=== PATIENT | female | born 1975 | race Caucasian/White ===

== ENCOUNTER 2022-04-29 09:48 | Emergency (ER) | payer OTHER, SELFPAY ==
[2022-04-29 09:59] VITALS: BP 120/90; PULSE 83; RESP 16; TEMP 36.2; O2SAT 100
--- NOTE | 2022-04-29 10:35 | ED.URI ---
HPI - URI/Sore Throat General Chief Complaint: Upper Respiratory Infection Stated Complaint: Sinus Congestion Time Seen by Provider: 04/29/22 10:30 Source: patient, RN notes reviewed and old records reviewed Mode of arrival: ambulatory Limitations: no limitations History of Present Illness HPI Narrative: 47-year-old female who presents to [facility] with complaints of 5 day history sinus congestion some yellow nasal drainage and postnasal drainage, headache, itchy ears and sinus pressure. Patient reports she has had a history of having sinus infections in past patient reports she has been taking Zyrtec D for her symptoms denies any known fevers does state some chills. Patient has not been COVID vaccinated or had flu shot, did home COVID test yesterday which was negative. MD elicited complaint: rhinorrhea, nasal congestion, sinus pain and other (Headache) Pertinent past history: sinusitis Onset (ago): day(s) Consistency: constant Severity: moderate Pain scale (0-10): 4 Description of mucous: yellow Able to tolerate fluids by mouth: Yes Treatments prior to arrival: other (Zyrtec D) Related Data Home Medications Medication Instructions Recorded Confirmed alogliptin 6.25 mg tablet (Nesina) 6.25 mg PO DAILY 04/29/22 04/29/22 atorvastatin 10 mg tablet 10 mg PO DAILY 04/29/22 04/29/22 levothyroxine 112 mcg tablet 112 mcg PO DAILY 04/29/22 04/29/22 valsartan 160 1 tablet PO DAILY 04/29/22 04/29/22 mg-hydrochlorothiazide 12.5 mg tablet Allergies Allergy/AdvReac Type Severity Reaction Status Date / Time amoxicillin Allergy Rash Verified 04/29/22 10:17 Review of Systems Review of Systems: CONSTITUTIONAL: Reports malaise, chills, sweats, no known fever. EYES: Denies visual changes, redness, or discharge. ENT: Reports rhinorrhea, congestion, sinus pain, no otalgia and sore throat. CARDIOVASCULAR: Denies chest pain, palpitations, or edema. RESPIRATORY: Reports cough.? Denies dyspnea. GASTROINTESTINAL: Denies abdominal pain, nausea, vomiting, diarrhea SKIN: Denies rash or itching. MUSCULOSKELETAL: Denies myalgia. NEUROLOGIC: Reports headache. 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 There is no relevant family history pertinent to the presenting complaint Exam Narrative: GENERAL: Well-appearing, well-nourished, and in no acute distress. HEAD: Normocephalic EYES: PERRLA, conjunctivae clear ENT: Nares clear, turbinates edematous and erythematous, yellow discharge.Sinus pressure,frontal headache. Mucous membranes moist. TM pearly smith with dull light reflex bilaterally; no tragal tenderness. Oropharynx erythematous without lesions. Tonsils not enlarged and without exudate, no drooling, no hoarseness, no trismus, uvula midline.post nasal drainage NECK: Supple. No lymphadenopathy CHEST: Clear to auscultation, breath sounds equal. No wheezing, rhonchi, rales, or stridor. No respiratory distress, speaks in full sentences.SAO2 100% on room air HEART: Regular rate and rhythm. No murmur heard. SKIN: Warm, dry, no rash. NEURO: Alert and oriented x3. PSYCH: Normal mood and affect Course Course Emergency Course: Patient is aware of diagnosis, understands and agrees to treatment plan.? Anticipatory guidance given.? P
== END 2022-04-29 10:50 | disposition home or self-care (01) ==
PROVIDERS: Emergency Provider Registered Nurse; PCP Internal Medicine
DX: J32.9 Chronic sinusitis, unspecified (principal); B96.89 Other specified bacterial agents as the cause of diseases classified elsewhere; E11.9 Type 2 diabetes mellitus without complications; I10 Essential (primary) hypertension; E03.9 Hypothyroidism, unspecified
CPT/HCPCS: 99213; G0463

== ENCOUNTER 2022-05-08 09:02 | Emergency (ER) | payer OTHER, SELFPAY ==
[2022-05-08 09:08] VITALS: BP 122/86; PULSE 64; RESP 20; TEMP 36.7; O2SAT 100
--- NOTE | 2022-05-08 09:10 | ED.NAVMDI ---
HPI - Nausea/Vomiting/Diarrhea General Chief complaint: Nausea/Vomiting/Diarrhea Stated complaint: Abdo/back pain/diarrhea/nausea Time Seen by Provider: 05/08/22 09:10 Source: patient and RN notes reviewed History of Present Illness HPI Narrative: Patient is a 47-year-old female who presents to urgent care with complaints of abdominal pain, low back pain, diarrhea, nausea and headache. Patient states it started yesterday. States that she was recently azithromycin, finished the prescription yesterday, for sinusitis. Patient states she has taken in past any issues with diarrhea. Patient states she feels very fatigued today. Denies any vomiting or fever. Patient has not taken anything [id number] for her symptoms. No other acute complaints. No acute distress noted. Patient aware of the plan of care. Some parts of this dictation were generated by voice recognition software and may contain typographical and/or grammatical inaccuracies. Related Data Home Medications Medication Instructions Recorded Confirmed alogliptin 6.25 mg tablet (Nesina) 6.25 mg PO DAILY 04/29/22 04/29/22 atorvastatin 10 mg tablet 10 mg PO DAILY 04/29/22 04/29/22 levothyroxine 112 mcg tablet 112 mcg PO DAILY 04/29/22 04/29/22 valsartan 160 1 tablet PO DAILY 04/29/22 04/29/22 mg-hydrochlorothiazide 12.5 mg tablet Allergies Allergy/AdvReac Type Severity Reaction Status Date / Time amoxicillin Allergy Rash Verified 04/29/22 10:17 Review of Systems Review of Systems: CONSTITUTIONAL: Denies fever, chills, or sweats. Reports of fatigue EYES: Denies visual changes, redness, or discharge. ENT: Denies rhinorrhea, congestion, sore throat, or otalgia. CARDIOVASCULAR: Denies chest pain, palpitations, or edema. RESPIRATORY: Denies cough or dyspnea. GASTROINTESTINAL: Reports abdominal cramping nausea diarrhea GENITOURINARY: Denies dysuria or hematuria. SKIN: Denies rash or itching. MUSCULOSKELETAL: Denies back pain, joint pain, or myalgia. NEUROLOGIC: Reports of headache All other systems reviewed are negative, except as documented in HPI. 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 There is no relevant family history pertinent to the patient complaint. Exam Narrative: GENERAL: This is a well-nourished, well-developed patient, in no apparent distress. HEAD: normocephalic, atraumatic. EYES: PERRL. Sclera clear/white. Vision is grossly intact. EARS: External ears normal, auditory canals clear and without drainage, TMs normal without perforation. Hearing grossly intact. NOSE: External nose normal with no obvious nasal discharge, nares without redness, no rhinorrhea. THROAT: Mucous membranes moist, posterior pharynx clear. NECK: Neck supple, non-tender without lymphadenopathy, masses or thyromegaly. CARDIOVASCULAR: Regular rate and rhythm RESPIRATORY: Clear to auscultation. Breath sounds equal bilaterally. No wheezes, rales, or rhonchi. GASTROINTESTINAL: Abdomen soft, mild diffuse tenderness exacerbated to the epigastric region, nondistended. Bowel sounds are active. No guarding. SKIN: warm, intact with no suspicious lesions or rash, good texture and turgor. NEURO: awake, alert, and oriented to person, place and time. There were no obvious focal neurologic abnormalities. EXTREMITIES: No clubbing, cyanosis, or edema.
== END 2022-05-08 09:54 | disposition home or self-care (01) ==
PROVIDERS: Emergency Provider Nurse Practitioner Family; PCP Internal Medicine
DX: B34.9 Viral infection, unspecified (principal); I10 Essential (primary) hypertension; E03.9 Hypothyroidism, unspecified; E11.9 Type 2 diabetes mellitus without complications
CPT/HCPCS: 81003; 99213; G0463

== ENCOUNTER 2022-09-22 11:33 | Emergency (ER) | payer SELFPAY ==
[2022-09-22 11:41] VITALS: BP 123/83; PULSE 66; RESP 16; TEMP 36.3; O2SAT 100
[2022-09-22 11:58] VITALS: BP 123/83; PULSE 66; RESP 16; TEMP 36.3; O2SAT 100
--- NOTE | 2022-09-22 12:10 | ED.SKABFB ---
HPI - Skin/Abscess/Foreign Bdy General Chief complaint: Skin/Abscess/Foreign Body Stated complaint: Body Rash Source: patient, family and RN notes reviewed History of Present Illness HPI narrative: 47 yo F presents to urgent care with daughter at side. Pt states for the last 3 weeks, she has been battling an itchy rash. Pt states it started on her abdomen and has now spread everywhere on her body, including scalp, ears, back, legs, and arms. Pt states she has tried everything to help including cortizone cream, benadryl, changing detergent, etc. Pt denies any new foods, drinks, or medications. Pt denies any SOB, chest pain, fevers, chills, or vomiting. Related Data Home Medications Medication Instructions Recorded Confirmed alogliptin 6.25 mg tablet (Nesina) 25 mg PO DAILY 04/29/22 09/22/22 atorvastatin 10 mg tablet 10 mg PO DAILY 04/29/22 09/22/22 levothyroxine 112 mcg tablet 125 mcg PO DAILY 04/29/22 09/22/22 valsartan 160 1 tablet PO DAILY 04/29/22 09/22/22 mg-hydrochlorothiazide 12.5 mg tablet cetirizine 10 mg tablet (Zyrtec) 10 mg PO DAILY 09/22/22 09/22/22 Allergies Allergy/AdvReac Type Severity Reaction Status Date / Time amoxicillin Allergy Rash Verified 09/22/22 11:56 Review of Systems Review of Systems: Pertinent positives and pertinent negatives per HPI. 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 There is no relevant family history pertinent to the patient complaint. Exam Narrative: GENERAL: This is a well-nourished, well-developed patient, in no apparent distress. HEAD: normocephalic, atraumatic. EYES: Sclera clear/white. Vision is grossly intact. EARS: External ears normal, auditory canals clear and without drainage. Hearing grossly intact. NOSE: External nose normal with no obvious nasal discharge, nares without redness, no rhinorrhea. THROAT: Mucous membranes moist, posterior pharynx clear. NECK: Neck supple, non-tender without lymphadenopathy, masses or thyromegaly. CARDIOVASCULAR: Regular rate RESPIRATORY: No respiratory distress SKIN: erythremic, hive-like rash to lower abdomen. 2 papules noted to right FA. No other rash noted to back or ears. NEURO: awake, alert, and oriented to person, place and time. There were no obvious focal neurologic abnormalities. EXTREMITIES: No clubbing, cyanosis, or edema. No joint tenderness, effusion, or edema noted. BACK: Nontender without deformity or crepitus. No flank tenderness. Course Course Level of Care: Express Care Visit Vital Signs Vital signs: Vital Signs Temperature 97.3 F L 09/22/22 11:41 Pulse Rate 66 09/22/22 11:41 Respiratory Rate 16 09/22/22 11:41 Blood Pressure 123/83 09/22/22 11:41 Pulse Oximetry 100 09/22/22 11:41 Oxygen Delivery Room Air 09/22/22 11:41 Temperature 97.3 F L 09/22/22 11:58 Pulse Rate 66 09/22/22 11:58 Respiratory Rate 16 09/22/22 11:58 Blood Pressure 123/83 09/22/22 11:58 Pulse Oximetry 100 09/22/22 11:58 Oxygen Delivery Room Air 09/22/22 11:58 Reviewed MDM - Skin/Abscess/Foreign Bdy MDM Narrative Medical decision making narrative: Take the steroids as directed, starting tomorrow. May need to go to an product safety associate and keep food diary if rash persists. Differential Diagnosis Differential diagnosis: Likely viral exanthem, ur
[2022-09-22] MEDS: methylPREDNISolone SOD SUCC 125 MG VIAL IM (12:15)
== END 2022-09-22 12:35 | disposition home or self-care (01) ==
PROVIDERS: Emergency Provider Nurse Practitioner Family; PCP Internal Medicine
DX: L30.9 Dermatitis, unspecified (principal); E11.9 Type 2 diabetes mellitus without complications; E78.00 Pure hypercholesterolemia, unspecified; I10 Essential (primary) hypertension; E03.9 Hypothyroidism, unspecified
CPT/HCPCS: 96372; 99213; G0463; J2930

== ENCOUNTER 2024-04-08 11:52 | Emergency (ER) | payer BC, SELFPAY ==
[2024-04-08 12:02] VITALS: BP 142/87; PULSE 85; RESP 18; TEMP 36.3; O2SAT 100
--- NOTE | 2024-04-08 12:14 | ED.GENADULT ---
HPI - General Adult General Chief complaint: Upper Respiratory Infection Stated complaint: Sore Throat/Headache Source: patient Mode of arrival: ambulatory Limitations: no limitations History of Present Illness HPI narrative: Patient presents for evaluation of sick symptoms for last 3 days. She had influenza a at the start of March. Symptoms at that time included fever and generalized body aches. She now has sinus congestion, thick yellow nasal drainage, sore throat and cough. She took tylenol and ibuprofen when she had flu. She states she has a history of recurrent sinusitis and responds favorably to azithromycin. Related Data Home Medications ?Medication ?Instructions ?Recorded ?Confirmed ?Last Taken ?Type alogliptin 6.25 mg tablet (Nesina) 25 mg PO DAILY 04/29/22 09/22/22 Unknown History atorvastatin 10 mg tablet 10 mg PO DAILY 04/29/22 09/22/22 Unknown History levothyroxine 112 mcg tablet 125 mcg PO DAILY 04/29/22 09/22/22 Unknown History valsartan 160 1 tablet PO DAILY 04/29/22 09/22/22 Unknown History mg-hydrochlorothiazide 12.5 mg tablet cetirizine 10 mg tablet (Zyrtec) 10 mg PO DAILY 09/22/22 09/22/22 Unknown History glimepiride 4 mg tablet mg 04/08/24 Unknown History levothyroxine 125 mcg tablet mcg 04/08/24 Unknown History Allergies Allergy/AdvReac Type Severity Reaction Status Date / Time amoxicillin Allergy Rash Verified 09/22/22 11:56 Review of Systems Review of Systems: CONSTITUTIONAL: Denies fever, chills, or sweats. EYES: Denies visual changes, redness, or discharge. ENT: Reports sinus congestion, thick yellow nasal drainage and sore throat. Denies otalgia CARDIOVASCULAR: Denies chest pain, palpitations, or edema. RESPIRATORY: Denies cough or dyspnea. GASTROINTESTINAL: Denies abdominal pain, nausea, vomiting, or diarrhea. GENITOURINARY: Denies dysuria or hematuria. SKIN: Denies rash or itching. MUSCULOSKELETAL: Denies back pain, joint pain, or myalgia. NEUROLOGIC: Denies headache, numbness, dizziness, or weakness. PSYCHIATRIC: Denies anxiety or depression. 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 HEAD: Normocephalic, atraumatic. EYES: PERRLA and EOMI. ENT: Nares clear, no rhinorrhea or epistaxis. Mucous membranes moist. Oropharynx without tonsillar hypertrophy exudate or other lesions. Bilateral TMs pearly smith nonbulging NECK: Supple. No adenopathy or masses. No carotid bruits or JVD CHEST: Clear to auscultation. No respiratory distress. No wheezes rales or rhonchi HEART: Regular rate and rhythm. No murmur heard. Normal peripheral pulses. ABDOMEN: Soft, nontender, nondistended, normal active bowel sounds. EXTREMITIES: Normal range of motion. No edema. SKIN: Warm, dry, no rash. NEURO: No focal deficits. Alert and oriented x3. PSYCH: Normal mood and affect. Course Course Emergency Course: This is a 49-year-old female who presented for evaluation of sick symptoms. She has a history of recurrent sinusitis that is response to azithromycin. She meets criteria for a ABRS today based upon presence of mucopurulent discharge. Will dc with azithromycin. Follow up with PCP. Go to the ER for worsening symptoms. Pt in agreement with plan of care. Level of Care: Express Care Visit Vital Signs Vital signs: Vital Signs Temperature 36.3 C L 04/08/24 12:02 Pulse Rate 85 04/08/24 12:02 Respiratory Rate 18 04/08/24 12:02 Blood Pressure 142/87 H 04/08/24 12:02 Pulse Oximetry 100 04/08/24 12:02 Oxygen Delivery Room Air 04/08/24 12:02 Temperature 36.3 C L 04/08/24 12:02 Pulse Rate 85 04/08/24 12:02 Respiratory Rate 18 04/08/24 12:02 Blood Pressure 142/87 H 04/08/24 12:02 Pulse Oximetry 100 04/08/24 12:02 Oxygen Delivery Room Air 04/08/24 12:02 Medical Decision Making Vital Signs Vital Signs: Vital Signs Temperature 36.3 C L 04/08/24 12:02 Pulse Rate 85 04/08/24 12:02 Respiratory Rate 18 04/08/24 12:02 Blood Pressure 142/87 H 04/08/24 12:02 Pulse Oximetry 100 04/08/24 12:02 Oxygen Delivery Room Air 04/08/24 12:02 Temperature 36.3 C L 04/08/24 12:02 Pulse Rate 85 04/08/24 12:02 Respiratory Rate 18 04/08/24 12:02 Blood Pressure 142/87 H 04/08/24 12:02 Pulse Oximetry 100 04/08/24 12:02 Oxygen Delivery Room Air 04/08/24 12:02 Discharge Plan Discharge Clinical Impression: Sinusitis Patient Disposition: Home, Self-Care Condition: Stable Instructions: Antibiotic Form, Sinusitis (ED) Additional Instructions: TRY SLEEPING WITH A HUMIDIFIER Patient Language: Swiss Prescriptions: New azithromycin 250 mg tablet See Rx Instructions .ROUTE .COMPLEX Qty: 6 0RF Rx Instructions: For 250 mg dose pack: take 500 mg today (day 1), then 250 mg for 4 days (days 2-5) No Action levothyroxine 125 mcg tablet glimepiride 4 mg tablet valsartan-hydrochlorothiazide 160-12.5 mg tablet 1 tablet PO DAILY levothyroxine 112 mcg tablet 125 mcg PO DAILY alogliptin [Nesina] 6.25 mg Tablet 25 mg PO DAILY atorvastatin 10 mg Tablet 10 mg PO DAILY cetirizine [Zyrtec] 10 mg Tablet 10 mg PO DAILY Follow-up/Referrals: Ritika Lanza DO [Physician] - Stand Alone Forms: Work/School Release IP Time of Disposition: 12:09
--- OUTSIDE RECORDS SUMMARY | 2024-04-08 13:51 | XMS_ITS | Encounter Summary ---
Author Organization [facility] Address [address] [facility] [place] [address] Phone Care Team Providers Care Shellfish Dredge Operator Name Role Phone Emily Stinson MD Primary Care Provider [phone] Encounter Details Date Type Department Care Team (Late st Contact Info) Description 04/29/2019 Telephone [facility] Oncology Services [address] [place] [address] Luigi Riggs MD [address] [place] [address] Social History Tobacco Use Types Packs/Day Years Used Date Smoking Tobacco: Never Smokeless Tobacco: Never Alcohol Use Standard Drinks/Week Comments Yes 0 (1 standard drink = 0.6 oz pur e alcohol) rarely Comments No Sex and Gender Information Value Date Recorded Sex Assigned at Not on file Legal Sex Female 2:30 PM CDT Gender Identity Not on file Sexual Orientation Not on file COVID-19 Exposure Response Date Recorded In the last month, have you been in contact with someone who was confirmed or suspected to have Coronavirus / COVID-19? No / Unsure 04/29/2019 12:55 PM CDT documented as of this encounter Miscellaneous Notes * Telephone Encounter - Iveth Thomas - 04/29/2019 10:27 AM CDT I left the patient a voicemail stating that were are cancelling her follow up for April 30 to reduce the risk of patients delaney the Covid 19 virus. The patient is to complete her lab work, call Dr. Riggs within 48 hours for results, and to schedule her April 30 follow up. documented in this encounter Plan of Treatment Not on file documented as of this encounter Visit Diagnoses Not on filedocumented in this encounter Care Teams Shellfish Dredge Operator Relationship Specialty Start Date End Date Emily Stinson MD [address] [place] [address] PCP - General Internal Medicine 09/14/16 documented as of this encounter
--- OUTSIDE RECORDS SUMMARY | 2024-04-08 13:51 | XMS_ITS | Encounter Summary ---
Author Organization [facility] Address [address] [place] [address] Care Team Providers Care Deboner Name Role Phone Emily Stinson MD Primary Care Provider [phone] Reason for Visit * Reason Onset Date Comments Scheduling Appointments 08/24/2020 Confirmi ng mammogram appt- no answer Encounter Details Date Type Department Care Team (Late st Contact Info) Description 08/24/2020 Telephone [facility] [address] [place] [id number] [address] Mcdaniel RT Scheduling Appointments (Confirming mammogram appt- no answer ) Social History Tobacco Use Types Packs/Day Years Used Date Smoking Tobacco: Never Comments No Sex and Gender Information Value Date Recorded Sex Assigned at Not on file Legal Sex Female 1:11 AM IN FILE OPERATOR Gender Identity Not on file Sexual Orientation Not on file documented as of this encounter Plan of Treatment Not on file documented as of this encounter Visit Diagnoses Not on filedocumented in this encounter Additional Health Concerns Infection Onset Date Last Indicated Resolved Time COVID: Suspected 03/23/2024 03/23/2024 03/23/2024 11:17 AM IN FILE OPERATOR Influenza, adult 03/23/2024 03/23/2024 03/30/2024 3:05 AM IN FILE OPERATOR documented as of this encounter Care Teams Deboner Relationship Specialty Start Date End Date Emily Stinson MD [address] [place] [address] PCP - General 06/04/17 documented as of this encounter
--- OUTSIDE RECORDS SUMMARY | 2024-04-08 13:51 | XMS_ITS | Referral Summary ---
Author Organization [facility] Address [address] [place] [address] Care Team Providers Care Market Research Senior Project Manager Name Role Phone Emily Stinson MD Primary Care Provider [phone] Encounters Date Type Department Care Team Description 03/23/2024 11:04 AM SENIOR ARCHITECT - 03/23/2024 12:25 PM SENIOR ARCHITECT Emergency [facility] Emergency Department [address] [place] [address] Influenza A (Primary Dx) Discharge Disposition: Discharge to home or self care from Last 3 Months Allergies Active Allergy Reactions Criticality Noted Date Comments Amoxicillin Medications levothyroxine (SYNTHROID) 125 mcg tablet Take 125 mcg by mouth daily before breakfast Active valsartan-hydro CHLOROthiazide (DIOVAN-HCT) 160-12.5 mg per tablet Take 1 tablet by mouth daily Active cetirizine (Wal-Zyr, cetirizine,) 10 mg capsule Take 10 mg by mouth daily Active methylPREDNISol one (MEDROL DOSEPACK) 4 mg Dosepack follow package directions 21 tablet 4 Active Active Problems Problem Noted Date Diagnosed Date Pseudotumor cerebri 12/27/2020 Benign intracranial hypertension 12/08/2014 Cephalalgia 12/08/2014 Immunizations Immunization Administration Dates Next Due Influenza, Quadrivalent, Spl it, Preservative Free, Intramuscular 01/04/2021 Social History Tobacco Use Types Packs/Day Years Used Date Smoking Tobacco: Never Smokeless Tobacco: Never Tobacco Cessation:Counseling Given: Not Answered Alcohol Use Standard Drinks/Week Comments Not Currently 0 (1 standard drink = 0.6 oz pur e alcohol) AUDIT-C Answer Date Recorded Q1: How often do you have a drink containing alc ohol? Never 05/05/2021 Average Number of Drinks Not on file 022 Frequency of Binge Drinking Not on file 04/13 Personal Safety Answer Date Recorded Have you ever been in or are you currently in a harmful physical or emotional relationship or is someone making you feel afraid or unsafe? Denies 03/23/2024 Comments No Sex and Gender Information Value Date Recorded Sex Assigned at Not on file Legal Sex Female 1:11 AM SENIOR ARCHITECT Gender Identity Not on file Sexual Orientation Not on file Last Filed Vital Signs Vital Sign Reading Time Taken Comments Blood Pressure 159/95 03/23/2024 9:55 AM SENIOR ARCHITECT Pulse 74 03/23/2024 9:55 AM SENIOR ARCHITECT Temperature 35.7 C (96.2 F) 03/23/2024 9:54 AM SENIOR ARCHITECT Respiratory Rate 17 03/23/2024 9:55 AM SENIOR ARCHITECT Oxygen Saturation 100% 03/23/2024 9:55 AM SENIOR ARCHITECT Inhaled Oxygen Concentration - - Weight 110.7 kg (244 lb) 03/23/2024 9:55 AM SENIOR ARCHITECT Height 170.2 cm (5' 7 ) 03/23/2024 9:55 AM SENIOR ARCHITECT Body Mass Index 38.22 03/23/2024 9:55 AM SENIOR ARCHITECT Plan of Treatment Not on file Medical Devices Implanted Type Area Forest Economist Device Identifier Shelf Expiration Date Model / Serial / Lot Medtronic Inc [id number] Tom .25cm .13cm 120cm Antibiotic Impregnated Peritoneal Catheter - [id number] Implanted:Qty: 1 on 01/03/2021 by Adry Ramsay MD at [facility] Right: Abdomen Medtronic Inc [id number] 01/25/2022 [id number] / / [id number] Medtronic Usa Inc X 41159 Strata Ii Csf Programmable Flow Control Ball Spring Mechanism - [id number] Implanted:Qty: 1 on 01/03/2021 by Arnulfo Shaffer MD at [facility] Right: Brain Medtronic Inc [id number] 09/13/2023 [id number] / / [id number] Explanted Type Area Forest Economist Device Identifier Shelf Expiration Date Model / Serial / Lot Peritoneal Exhauster Engineer Catheter Explanted:Qty: 1 on 01/03/2021 by Adry Ramsay MD at [facility] Right: Abdomen Other Description:Brand of Almitaete r removed unknown. Procedures Procedure Name Priority Date/Time Associated Diagnosis Comments INFLUENZA A/B, RSV, AND COVID-19 PCR STAT 03/23/2024 10:27 AM SENIOR ARCHITECT SCREENING MAMMOGRAM BILATERAL W TIMMY Schedule Routine, Read Routine (OP Routine) 08/25/2020 4:07 PM CDT Encounter for screening mammogram for malignant neoplasm of breast from Last 3 Months or Most Recently Relevant to Health Maintenance Results * (ABNORMAL) Influenza A/B, RSV, and COVID-19 PCR Nasopharyngeal (03/23/2024 10:27 AM SENIOR ARCHITECT) COVID-19 RNA Negative Negative Influenza A RNA Positive(A) Negative CE RNER [facility] (ANTHONY) Influenza B RNA Negative Negative CERN ER [facility] (ANTHONY) RSV RNA Negative Negative ROBERTO BARCLAY (ANTHONY) Comment: Interpretive data: Testing performed by [facility]. This test is performed using the Frodio Xpert Xpress CoV-2/Flu/RSV plus assay. This is a multiplex, real- time reverse transcriptase PCR assay intended for the qualitative detection of nucleic acid from SARS-CoV-2, influenza A, influenza B, and respiratory syncytial virus. This assay has been cleared by the [place] Food and Drug administration. The performance characteristics have been verified by the [facility]. Results must be considered in the clinical context, and a negative result does not rule out infection. Interpretive Data last revised 2023 Nasopharyngeal 03/23/2024 10 :27 AM SENIOR ARCHITECT 03/23/2024 10:33 AM SENIOR ARCHITECT Narrative ROBERTO BARCLAY (ANTHONY) - 03/23/2024 11:16 AM SENIOR ARCHITECT Is the Patient experiencing symptoms consistent with COVID?->Yes us Ginny Hale MD LAB MICROBIOLOGY - GENERA L ORDERABLES Final Result ROBERTO BARCLAY (ANTHONY) 1 [facility] [place] [address] * Screening Mammogram Bilateral W Timmy (08/25/2020 4:07 PM CDT) Anatomical Region Laterality Modality Breast Bilateral Mammography 08/25/2020 4:43 PM CDT Impressions 08/25/2020 4:43 PM CDT There is no mammographic evidence of malignancy. A 1 year screening mammogram is recommended. BI-RADS: 1 - Negative. The patient will be entered into a reminder system with a target due date of 1 year for her next mammogram. Electronically signed by: Nikky Bustamante MD Narrative 08/25/2020 4:43 PM CDT EXAMINATION: SCREENING MAMMOGRAM BILATERAL W TIMMY ORDERING HEALTHCARE PROVIDER: CARLY RAMIREZ HISTORY: Routine screening mammography. COMPARISON: 08/29/2019 and 06/20/2017 TECHNIQUE: CC and MLO views of the bilateral breasts were obtained with digital technique using breast tomosynthesis with C view. Computer aided detection was utilized. FINDINGS: DENSITY: There are scattered fibroglandular elements in the bilateral breasts. BREASTS: There are no suspicious masses, suspicious calcifications, or other suspicious findings in either breast. There has been no suspicious interval change. Carly Ramirez PLASTIC PRODUCTION MACHINE SETTER IMG MAMMO PROCEDURES Final R esult from Last 3 Months or Most Recently Relevant to Health Maintenance Insurance [facility] PPO IDPA AETNA CARE OTHER [employer] OOS [employer] OOS Advance Directives For more information, please contact: [phone] * Full Code (Latest Code Status on File) Date Activated Date Inactivated Comments 01/02/2021 8:01 AM 01/04/2021 8:45 PM Care Teams Market Research Senior Project Manager Relationship Specialty Start Date End Date Emily Stinson MD [address] [place] [address] PCP - General 06/04/17
--- OUTSIDE RECORDS SUMMARY | 2024-04-08 13:51 | XMS_ITS | Encounter Summary ---
Author Organization [facility] Address [address] [place] [address] Phone Care Team Providers Care Field Organizer Name Role Phone Emily Stinson MD Primary Care Provider [phone] Encounter Details Date Type Department Care Team (Late st Contact Info) Description 10/25/[address] [facility] Ophthalmology [address] [place] [address] 1[address] [place] [id number] Mynor Damian MD [address] [facility] [address] [place], [place] [id number] Social History Tobacco Use Types Packs/Day Years Used Date Smoking Tobacco: Never Comments No Sex and Gender Information Value Date Recorded Sex Assigned at Not on file Legal Sex Female 1:11 AM CURVE CLEANER Gender Identity Not on file Sexual Orientation Not on file documented as of this encounter Plan of Treatment Not on file documented as of this encounter Visit Diagnoses Not on filedocumented in this encounter Additional Health Concerns Infection Onset Date Last Indicated Resolved Time COVID: Suspected 03/23/2024 03/23/2024 03/23/2024 11:17 AM CURVE CLEANER Influenza, adult 03/23/2024 03/23/2024 03/30/2024 3:05 AM CURVE CLEANER documented as of this encounter Eye Exam Visual Acuity (near card) Right eye Left eye Near sc 20/30-2 ph 20/20-2 20/30 ph 20/2 0 Tonometry (Tonopen, 3:32 PM) Right eye Left eye Pressure 18 20 Pupils Dark Light Shape React APD Right eye 5 3 Round Brisk None Left eye 5 3 Round Brisk None Visual Finch Right eye Left eye Full Full Extraocular Movement Right eye Left eye Full, Ortho Full, Ortho Neuro/Psych Oriented x3: Yes Mood/Affect: Normal Color Right eye Left eye Ishihara 01/23 11.5 External Exam Right eye Left eye External Normal Normal Slit Lamp Exam Right eye Left eye Lids/Lashes Normal Normal Conjunctiva/Sclera White and quiet White and pooja et Cornea Clear Clear Anterior Chamber Deep and quiet Deep and quiet Iris Round and reactive Round and nupur ctive Lens Clear Clear Vitreous Normal Normal Fundus Exam Right eye Left eye Disc Normal, mild edge bl urriness temporally Normal, mild edge blurriness temporally C/D Ratio 0.2 0.2 Macula Normal Normal Vessels Normal Normal Periphery Normal Normal Care Teams Field Organizer Relationship Specialty Start Date End Date Emily Stinson MD [address] [place] [address] PCP - General 06/04/17 documented as of this encounter
--- OUTSIDE RECORDS SUMMARY | 2024-04-08 13:51 | XMS_ITS | Encounter Summary ---
Author Organization [facility] Address [address] [place] [address] Care Team Providers Care Machining Department Supervisor Name Role Phone Emily Stinson MD Primary Care Provider [phone] Encounter Details Date Type Department Care Team (Late st Contact Info) Description 11/15/2020 Orders Only [facility] Neurosurgery [address] [facility] 4th Floor [address] [place] [address] Ozzy Bernard MD [address] [facility] [address] [place] [address] Pseudotumor (Primary Dx) Social History Tobacco Use Types Packs/Day Years Used Date Smoking Tobacco: Never Smokeless Tobacco: Never Comments No Sex and Gender Information Value Date Recorded Sex Assigned at Not on file Legal Sex Female 1:11 AM OUTSIDE PROPERTY AGENT Gender Identity Not on file Sexual Orientation Not on file documented as of this encounter Plan of Treatment Not on file documented as of this encounter Visit Diagnoses Diagnosis Pseudotumor- Primary documented in this encounter Additional Health Concerns Infection Onset Date Last Indicated Resolved Time COVID: Suspected 03/23/2024 03/23/2024 03/23/2024 11:17 AM OUTSIDE PROPERTY AGENT Influenza, adult 03/23/2024 03/23/2024 03/30/2024 3:05 AM OUTSIDE PROPERTY AGENT documented as of this encounter Care Teams Machining Department Supervisor Relationship Specialty Start Date End Date Emily Stinson MD [address] [place] [address] PCP - General 4/23/18 documented as of this encounter
--- OUTSIDE RECORDS SUMMARY | 2024-04-08 13:51 | XMS_ITS | Clinical Summary ---
Author Organization [facility] Address [address] [place] [address] Care Team Providers Care Wallpaper Scraper Name Role Phone Emily Stinson MD Primary Care Provider [phone] Allergies Active Allergy Reactions Criticality Noted Date [...] 12/27/2020 Benign intracranial hypertension 12/08/2014 Cephalalgia 12/08/2014 Encounters Date Type Department Care Team Description 03/23/2024 11:04 AM BAG MACHINE OPERATOR - 03/23/2024 12:25 PM BAG MACHINE OPERATOR Emergency [facility] Emergency Department [address] [place] [address] Influenza A (Primary Dx) Discharge Disposition: Discharge to home or self care from Last 3 Months Immunizations Immunization Administration Dates Next Due Influenza, Quadrivalent, Spl it, Preservative Free, Intramuscular 01/04/2021 Surgical History Surgery Date Site/Laterality Comments TUBAL LIGATION LUMBAR PUNCTURE WO INJECTION, DIAGNOSTIC 11/11/2020 N/A Medical History Medical History Date Comments Pseudotumor cerebri Hypothyroidism Seasonal allergies B12 deficiency Social History Tobacco Use Types Packs/Day Years [...] on file Legal Sex Female 1:11 AM BAG MACHINE OPERATOR Gender Identity Not on file Sexual Orientation Not on file Obstetrics History Para Term AB IAB SAB Ectopic Multiple Livin g Live Births 3 1 1 Date Outcome GA Total Labor Labor/2nd/3rd Weight Sex Type Anes PTL Winnie A1 A5 Name Clin Term Last Filed Vital Signs Vital Sign Reading Time Taken Comments Blood Pressure 159/95 03/23/2024 9:55 AM BAG MACHINE OPERATOR Pulse 74 03/23/2024 9:55 AM BAG MACHINE OPERATOR Temperature 35.7 C (96.2 F) 03/23/2024 9:54 AM BAG MACHINE OPERATOR Respiratory Rate 17 03/23/2024 9:55 AM BAG MACHINE OPERATOR Oxygen Saturation 100% 03/23/2024 9:55 AM BAG MACHINE OPERATOR Inhaled Oxygen Concentration - - Weight 110.7 kg (244 lb) 03/23/2024 9:55 AM BAG MACHINE OPERATOR Height 170.2 cm (5' 7 ) 03/23/2024 9:55 AM BAG MACHINE OPERATOR Body Mass Index 38.22 03/23/2024 9:55 AM BAG MACHINE OPERATOR Plan of Treatment Health Maintenance Due Date Last Done Comments Colon Cancer Screening-Colonoscopy 1975 Depression Screening 1975 Hepatitis C Screening 1975 Hepatitis B Screening 1993 Regular Well Visit/Exam 18-64 1993 Breast Cancer Screening-Mammogram 08/25/2021 08/25/2020, 08/29/2019, 06/20/2017 Influenza Vaccine (#1) 2023 , 12/20/2018, 12/07/2017, Additional history exists DTaP/Tdap/Td Vaccine (2 - Td or Tdap) 10/10/2025 10/11/2015 Pneumococcal vaccine <65 Aged Out 09/11/2016 No longer eligible based on patient's age to complete this topic Medical Devices Implanted Type Area Electronic Publications Specialist Device Identifier Shelf Expiration Date Model / Serial / Lot Medtronic Inc [id number] Tom .25cm .13cm 120cm Antibiotic Impregnated Peritoneal Catheter - [id number] Implanted:Qty: 1 on 01/03/2021 by Adry Ramsay MD at [facility] Right: Abdomen Medtronic Inc [id number] 01/25/2022 [id number] / / [id number] Medtronic Usa Inc X 13647 Strata Ii Csf Programmable Flow Control Ball Spring Mechanism - [id number] Implanted:Qty: 1 on 01/03/2021 by Arnulfo Shaffer MD at [facility] Right: Brain Med[employer]onic Inc [id number] 09/13/2023 [id number] / / [id number] Explanted Type Area Electronic Publications Specialist Device Identifier Shelf Expiration Date Model / Serial / Lot Peritoneal Chef & Owner Catheter Explanted:Qty: 1 on 01/03/2021 by Adry Ramsay MD at [facility] Right: Abdomen Other Description:Brand of Cathete r removed unknown. Procedures Procedure Name Priority Date/Time Associated Diagnosis Comments INFLUENZA A/B, RSV, AND COVID-19 PCR STAT 03/23/2024 10:27 AM BAG MACHINE OPERATOR SCREENING MAMMOGRAM BILATERAL W TIMMY Schedule Routine, Read Routine (OP Routine) 08/25/2020 4:07 PM CDT Encounter for screening mammogram for malignant neoplasm of breast from Last 3 Months or Most Recently Relevant to Health Maintenance Results * (ABNORMAL) Influenza A/B, RSV, and COVID-19 PCR Nasopharyngeal (03/23/2024 10:27 AM BAG MACHINE OPERATOR) COVID-19 RNA Negative Negative Influenza A RNA Positive(A) Negative [facility] (ANTHONY) Influenza B RNA Negative Negative [facility] (ANTHONY) RSV RNA Negative Negative [facility] (ANTHONY) Comment: Interpretive data: Testing performed by [facility]. This test is performed using the ConteXtream Xpert Xpress CoV-2/Flu/RSV plus assay. This is a multiplex, real- time reverse transcriptase PCR assay intended for the qualitative detection of nucleic acid from SARS-CoV-2, influenza A, influenza B, and respiratory syncytial virus. This assay has been cleared by the [place] Food and Drug administration. The performance characteristics have been verified by the [facility]. Results must be considered in the clinical context, and a negative result does not rule out infection. Interpretive Data last revised 2023 Nasopharyngeal 03/23/2024 10 :27 AM BAG MACHINE OPERATOR 03/23/2024 10:33 AM BAG MACHINE OPERATOR Narrative ROBERTO BARCLAY (ANTHONY) - 03/23/2024 11:16 AM BAG MACHINE OPERATOR Is the Patient experiencing symptoms consistent with COVID?->Yes us Ginny Hale MD LAB MICROBIOLOGY - GENERA L ORDERABLES Final Result ROBERTO BARCLAY ([place]) 1 [facility] Department [place] [address] * Screening Mammogram Bilateral W Timmy (08/25/2020 [...] been no suspicious interval change. Carly Ramirez NP IMG MAMMO PROCEDURES Final R esult from Last 3 Months or Most Recently Relevant to Health Maintenance Insurance [facility] PPO [facility] T CARE OTHER [employer] ACCESS OOS [employer] ACC[employer] OOS Advance Directives For more information, please contact: [phone] * Full Code (Latest Code Status on File) Date Activated Date Inactivated Comments 01/02/2021 8:01 AM 01/04/2021 8:45 PM Care Teams Wallpaper Scraper Relationship Specialty Start Date End Date Emily Stinson MD [address] [place] [address] PCP - General 06/04/17
--- OUTSIDE RECORDS SUMMARY | 2024-04-08 13:51 | XMS_ITS | Data Portability ---
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 Plan of Treatment Reminders Order Date Submit Date Provider Last Modified By Organization Details Last Modified Time Details Appointments ANY 30 2024 08:30A GEORGE BRAUN Not available Not available Not available Lab urinaly sis, dipstic k 2024 025 nsuthan In-Office Order, Internal Use Only DO Not Attach Compendium DO Not Attach Compendium, Do Not Delete/merge, [id number] 02/25/2024 12:07:31 CBC w/ auto diff 2024 025 [facility], [address] [facility] [facility] [address], [place], [address], 02/26/2024 08:24:52 HbA1c (hemogl obin A1c), blood 2024 025 [facility], [address] [facility], [facility], [place], [address], 02/26/2024 08:24:48 lipid panel, serum 2024 025 [facility], [address] [facility], [facility], [place], [address], 02/26/2024 08:24:45 CMP, serum or plasma 2024 025 [facility], [address], [place], [address], 02/26/2024 08:24:46 TSH, ultra-s ensitiv e, serum 2024 025 [facility], [address] [facility] [facility], [place], [address], 02/26/2024 08:24:50 vitamin B12, serum 2024 025 [facility], [address], [place], [address], 02/26/2024 08:24:49 albumin /creati nine, mass ratio, urine 2023 024 [facility], [address] [facility] [facility], [place], [address], 01/25/2024 08:24:27 HbA1c (hemogl obin A1c), blood 2023 024 [facility], [address] [facility] [facility], [place], [address], 07/06/2023 04:10:49 lipid panel, serum 2023 024 [facility], [address] [facility], [facility], [place], [address], 07/06/2023 04:10:48 CBC w/ auto diff 2023 024 [facility], [address], [place], [address], 07/06/2023 04:10:51 CMP, serum or plasma 2023 024 [facility], [address], [place], [address], 07/06/2023 04:10:49 TSH, ultra-s ensitiv e, serum 2023 024 [facility], [address] [facility] [address], [place], [address], 07/06/2023 04:10:50 Referral None recorde d. Procedures None recorde d. Surgeries None recorde d. Imaging CT, abdomen + pelvis, w/o contras t - LLQ tendern ess -? diverti culitis / em 2023 024 [facility] (Rad[facility]), [address] [facility] , [place], [address], 08/09/2023 08:33:31 Medication Orders Macrobi d 100 mg capsule 2024 025 [facility] #[id number], [address], [place], [place], [id number], 02/25/2024 12:12:59 Wegovy 0.25 mg/0.5 mL subcuta neous pen injecto r 2024 025 [facility] #13949, [address], [place], [place], [id number], 03/13/2024 13:59:53 levothy roxine 125 mcg tablet 2024 025 [facility] #97284, [address], [place], [place], [id number], 02/25/2024 12:07:50 Zithrom ax Z-Sebastian 250 mg tablet 2023 025 [facility] #47218, [address], [place], [place], [id number], 02/25/2024 12:01:04 Rybelsu s 7 mg tablet 2023 025 [facility] #28554, [address], [place], [place], [id number], 02/25/2024 12:06:49 atorvas tatin 10 mg tablet 2023 [facility] #20127, [address] , [place], [place], [id number], 06/11/2023 10:47:42 glimepi ride 4 mg tablet 2023 024 [facility] #19845, [address] , [place], [place], [id number], 06/11/2023 10:47:44 Rybelsu s 3 mg tablet 2023 024 [facility] #49038, [address] , [place], [place], [id number], 07/10/2023 10:32:27 valsart an 160 mg-hydr ochloro thiazid e 12.5 mg tablet 2023 024 [facility] #75892, [address], [place], [place], [id number], 06/11/2023 10:47:46 levothy roxine 125 mcg tablet 2023 024 [facility] #51031, [address], [place], [place], [id number], 06/11/2023 10:47:43 cyanoco balamin (vit B-12) 1,000 mcg/mL injecti on solutio n 2023 024 [facility] #98077, [address] , [place], [place], [id number], 06/11/2023 10:47:38 ketocon azole 2 % topical cream 2022 024 [facility] #42737, [address], [place], [place], [id number], 08/27/2023 15:11:18 ketocon azole 2 % shampoo 2022 024 [facility] #64693, [address], [place], [place], [id number], 07/10/2023 10:15:12 glimepi ride 4 mg tablet 2022 023 [facility] #68745, [address], [place], [place], [id number], 11/30/2022 09:59:25 Patient TargetsNo targets recorded. Patient Instructions Encounter Date Encounter Id Patient Instructions Last Modified By Organization Details Last Modified Time 11/30/2022 [id number] keep f/u nsuthan Not available 11/30 10:00:07 06/11/2023 [id number] A healthy lifestyle: care instructions nsuthan Not available 06/11/2023 10:47:27 f/u in 1 month nsuthan Not available 0 06/11/2023 10:47:44 07/10/2023 [id number] f/u sunday and f/u in 4month nsuthan Not available 07/10/2023 10:33:54 08/27/2023 [id number] keep f/u nsuthan Not available 08/26 15:11:52 02/25/2024 [id number] f/u in 3 month nsuthan Not available 02/25/2024 12:13:31 Reason for Referral None Reported. Results Created Date Observation Date Name Description Value Unit Range Abnormal Flag Note LastModifiedBy Organization Detail LastModifiedTime 07/05/19 24 07/06/2023 LIPID PANEL cholesterol, total 127 mg/dL 100-19 9 Not Available [facility] ([facility]) [address] [facility] [address], [place], [address], 07/06/2023 04:10:48 07/05/19 24 07/06/2023 LIPID PANEL triglyceride s 145 mg/dL 0-149 Not Available [facility] ([facility]) [address] [facility] [address], [place], [address], 07/06/2023 04:10:48 07/05/19 24 07/06/2023 LIPID PANEL HDL cholesterol 34 mg/dL >39 below low normal Not Available [facility] ([facility]) [address] [place], [address], 07/06/2023 04:10:48 07/05/19 24 07/06/2023 LIPID PANEL VLDL cholesterol west 25 mg/dL 5-40 Not Available [facility] ([facility]) [address] [place], [address], 07/06/2023 04:10:48 07/05/19 24 07/06/2023 LIPID PANEL LDL chol calc ([facility]) 68 mg/dL 0-99 Not Available [facility] ([facility]) [address] [place], [address], 07/06/2023 04:10:48 07/05/19 24 07/06/2023 COMP. METAB OLIC PANEL (14) glucose 237 mg/dL 70-99 above high normal Not Available [facility] ([facility]) [address] [place], [address], 07/06/2023 04:10:48 07/05/19 24 07/06/2023 COMP. METAB OLIC PANEL (14) BUN 12 mg/dL 6-24 Not Available [facility] ([facility]) [address] [place], [address], 07/06/2023 04:10:48 07/05/19 24 07/06/2023 COMP. METAB OLIC PANEL (14) creatinine 0.74 mg/dL 0.57-1 .00 Not Available [facility] ([facility]) [address] [place], [address], 07/06/2023 04:10:48 07/05/19 24 07/06/2023 COMP. METAB OLIC PANEL (14) eGFR 100 mL/mi n/1.7 3 >59 Not Available [facility] ([facility]) [address] [facility] [address], [place], [address], 07/06/2023 04:10:48 07/05/19 24 07/06/2023 COMP. METAB OLIC PANEL (14) BUN/creatini ne ratio 16 9-23 Not Available [facility] ([facility]) [address] [facility] [address] [place], [place], [address], 07/06/2023 04:10:48 07/05/19 24 07/06/2023 COMP. METAB OLIC PANEL (14) sodium 136 mmol/ L 134-14 4 Not Available [facility] ([facility]) [address] [facility] [place], [address], 07/06/2023 04:10:48 07/05/19 24 07/06/2023 COMP. METAB OLIC PANEL (14) potassium 4.4 mmol/ L 3.5-5. 2 Not Available [facility] ([facility]) [address] [facility] [address] [place], [place], [address], 07/06/2023 04:10:48 07/05/19 24 07/06/2023 COMP. METAB OLIC PANEL (14) chloride 105 mmol/ L 96-106 Not Available [facility] ([facility]) [address] [facility] [place], [address], 07/06/2023 04:10:48 07/05/19 24 07/06/2023 COMP. METAB OLIC PANEL (14) carbon dioxide, total 22 mmol/ L 20-29 Not Available [facility] ([facility]) [address] [facility] [place], [address], 07/06/2023 04:10:48 07/05/19 24 07/06/2023 COMP. METAB OLIC PANEL (14) calcium 8.9 mg/dL 8.7-10 .2 Not Available [facility] ([place] [facility]) [address] [facility] [place], [address], 07/06/2023 04:10:48 07/05/19 24 07/06/2023 COMP. METAB OLIC PANEL (14) protein, total 5.9 g/dL 6.0-8. 5 below low normal Not Available [facility] ([facility]) [address] [place], [address], 07/06/2023 04:10:48 07/05/19 24 07/06/2023 COMP. METAB OLIC PANEL (14) albumin 3.5 g/dL 3.9-4. 9 below low normal Not Available [facility] ([facility]) [address] [place], [address], 07/06/2023 04:10:48 07/05/19 24 07/06/2023 COMP. METAB OLIC PANEL (14) globulin, total 2.4 g/dL 1.5-4. 5 Not Available [facility] ([facility]) [address] [place], [address], 07/06/2023 04:10:48 07/05/19 24 07/06/2023 COMP. METAB OLIC PANEL (14) A/G ratio 1.5 1.2-2. 2 Not Available [facility] ([facility]) [address] [place], [address], 07/06/2023 04:10:48 07/05/19 24 07/06/2023 COMP. METAB OLIC PANEL (14) bilirubin, total 0.3 mg/dL 0.0-1. 2 Not Available [facility] ([facility]) [address] [place], [address], 07/06/2023 04:10:48 07/05/19 24 07/06/2023 COMP. METAB OLIC PANEL (14) alkaline phosphatase 121 IU/L 44-121 Not Available [facility] ([facility]) [address] [place], [address], 07/06/2023 04:10:48 07/05/19 24 07/06/2023 COMP. METAB OLIC PANEL (14) AST (SGOT) 14 IU/L 0-40 Not Available [facility] ([facility]) [address] [facility] [address], [place], [address], 07/06/2023 04:10:48 07/05/19 24 07/06/2023 COMP. METAB OLIC PANEL (14) ALT (SGPT) 17 IU/L 0-32 Not Available [facility] ([facility]) [address] [facility] [address], [place], [address], 07/06/2023 04:10:48 07/05/19 24 07/06/2023 HEMOG LOBIN A1C hemoglobin A1C 9.7 % 4.8-5. 6 above high normal Predi abete s: 5.7 - 6.4 Diabe betty: >6.4 Glyce kristyn contr ol for adult s with diabe betty: <7.0 Not Available [facility] ([facility]) [address] [facility] [address], [place], [address], 07/06/2023 04:10:49 07/05/19 24 07/06/2023 TSH TSH 2.170 uIU/m L 0.450- 4.500 Not Available [facility] ([facility]) [address] [facility] [address], [place], [address], 07/06/2023 04:10:50 07/05/19 24 07/06/2023 CBC WITH DIFFE RENTI AL/PL ATELE T WBC 7.0 x10e3 /uL 3.4-10 .8 Not Available [facility] ([facility]) [address] [facility] [address], [place], [address], 07/06/2023 04:10:51 07/05/19 24 07/06/2023 CBC WITH DIFFE RENTI AL/PL ATELE T RBC 4.51 x10e6 /uL 3.77-5 .28 Not Available [facility] ([facility]) [address] [facility] [address], [place], [address], 07/06/2023 04:10:51 07/05/1907/06/2023 CBC WITH DIFFE RENTI AL/PL ATELE T hemoglobin 13.0 g/dL 11.1-1 5.9 Not Available [facility] ([facility]) [address] [facility] [address], [place], [address], 07/06/2023 04:10:51 07/05/1907/06/2023 CBC WITH DIFFE RENTI AL/PL ATELE T hematocrit 40.4 % 34.0-4 6.6 Not Available [facility] ([facility]) [address] [facility] [address], [place], [address], 07/06/2023 04:10:51 07/05/1907/06/2023 CBC WITH DIFFE RENTI AL/PL ATELE T MCV 90 fL 79-97 Not Available [facility] ([facility]) [address] [facility] [address], [place], [address], 07/06/2023 04:10:51 07/05/1907/06/2023 CBC WITH DIFFE RENTI AL/PL ATELE T MCH 28.8 pg 26.6-3 3.0 Not Available [facility] ([facility]) [address] [facility] [address], [place], [address], 07/06/2023 04:10:51 07/05/19 24 07/06/2023 CBC WITH DIFFE RENTI AL/PL ATELE T MCHC 32.2 g/dL 31.5-3 5.7 Not Available [facility] ([facility]) [address] [facility] [address], [place], [address], 07/06/2023 04:10:51 07/05/19 24 07/06/2023 CBC WITH DIFFE RENTI AL/PL ATELE T RDW 12.7 % 11.7-1 5.4 Not Available [facility] ([facility]) [address], [place], [address], 07/06/2023 04:10:51 07/05/19 24 07/06/2023 CBC WITH DIFFE RENTI AL/PL ATELE T platelets 292 x10e3 /uL 150-45 0 Not Available [facility] ([facility]) [address] [facility] [address], [place], [address], 07/06/2023 04:10:51 07/05/19 24 07/06/2023 CBC WITH DIFFE RENTI AL/PL ATELE T neutrophils 70 % notest ab. Not Available [facility] ([facility]) [address] [facility] [address], [place], [address], 07/06/2023 04:10:51 07/05/19 24 07/06/2023 CBC WITH DIFFE RENTI AL/PL ATELE T lymphs 20 % notest ab. Not Available [facility] ([facility]) [address] [facility] [address], [place], [address], 07/06/2023 04:10:51 07/05/19 24 07/06/2023 CBC WITH DIFFE RENTI AL/PL ATELE T monocytes 6 % notest ab. Not Available [facility] ([facility]) [address] [facility] [address], [place], [address], 07/06/2023 04:10:51 07/05/19 24 07/06/2023 CBC WITH DIFFE RENTI AL/PL ATELE T eos 3 % notest ab. Not Available [facility] ([facility]) [address] [facility] [address], [place], [address], 07/06/2023 04:10:51 07/05/19 24 07/06/2023 CBC WITH DIFFE RENTI AL/PL ATELE T basos 1 % notest ab. Not Available [facility] ([facility]) [address] [facility] [address], [place], [address], 07/06/2023 04:10:51 07/05/19 24 07/06/2023 CBC WITH DIFFE RENTI AL/PL ATELE T neutrophils (absolute) 4.9 x10e3 /uL 1.4-7. 0 Not Available [facility] ([facility]) [address] [place], [address], 07/06/2023 04:10:51 07/05/19 24 07/06/2023 CBC WITH DIFFE RENTI AL/PL ATELE T lymphs (absolute) 1.4 x10e3 /uL 0.7-3. 1 Not Available [facility] ([facility]) [address] [place], [address], 07/06/2023 04:10:51 07/05/19 24 07/06/2023 CBC WITH DIFFE RENTI AL/PL ATELE T monocytes(ab solute) 0.4 x10e3 /uL 0.1-0. 9 Not Available [facility] ([facility]) [address] [place], [address], 07/06/2023 04:10:51 07/05/19 24 07/06/2023 CBC WITH DIFFE RENTI AL/PL ATELE T eos (absolute) 0.2 x10e3 /uL 0.0-0. 4 Not Available [facility] ([facility]) [address] [place], [address], 07/06/2023 04:10:51 07/05/19 24 07/06/2023 CBC WITH DIFFE RENTI AL/PL ATELE T baso (absolute) 0.1 x10e3 /uL 0.0-0. 2 Not Available [facility] ([facility]) [address] [place], [address], 07/06/2023 04:10:51 07/05/19 24 07/06/2023 CBC WITH DIFFE RENTI AL/PL ATELE T immature granulocytes 0 % notest ab. Not Available [facility] ([facility]) [address] [place], [address], 07/06/2023 04:10:51 07/05/19 24 07/06/2023 CBC WITH DIFFE RENTI AL/PL ATELE T immature grans (abs) 0.0 x10e3 /uL 0.0-0. 1 Not Available [facility] ([facility]) [address] [place], [address], 07/06/2023 04:10:51 02/24/19 25 02/26/2024 LIPID PANEL cholesterol, total 148 mg/dL 100-19 9 Not Available [facility] ([facility]) [address] [place], [address], 02/26/2024 08:24:45 02/24/19 25 02/26/2024 LIPID PANEL triglyceride s 145 mg/dL 0-149 Not Available [facility] ([facility]) [address] [place], [address], 02/26/2024 08:24:45 02/24/19 25 02/26/2024 LIPID PANEL HDL cholesterol 42 mg/dL >39 Not Available [facility] ([facility]) [address] [place], [address], 02/26/2024 08:24:45 02/24/19 25 02/26/2024 LIPID PANEL VLDL cholesterol west 25 mg/dL 5-40 Not Available [facility] ([facility]) [address] [place], [address], 02/26/2024 08:24:45 02/24/19 25 02/26/2024 LIPID PANEL LDL chol calc ([facility]) 81 mg/dL 0-99 Not Available [facility] ([facility]) [address] [place], [address], 02/26/2024 08:24:45 02/24/19 25 02/26/2024 COMP. METAB OLIC PANEL (14) glucose 185 mg/dL 70-99 above high normal Not Available [facility] ([facility]) [address] [facility] [place], [address], 02/26/2024 08:24:46 02/24/19 25 02/26/2024 COMP. METAB OLIC PANEL (14) BUN 11 mg/dL 6-24 Not Available [facility] ([facility]) [address] [facility] [place], [address], 02/26/2024 08:24:46 02/24/19 25 02/26/2024 COMP. METAB OLIC PANEL (14) creatinine 0.73 mg/dL 0.57-1 .00 Not Available [facility] ([facility]) [address] [place], [address], 02/26/2024 08:24:46 02/24/19 25 02/26/2024 COMP. METAB OLIC PANEL (14) eGFR 101 mL/mi n/1.7 3 >59 Not Available [facility] ([facility]) [address] [facility] [place], [address], 02/26/2024 08:24:46 02/24/19 25 02/26/2024 COMP. METAB OLIC PANEL (14) BUN/creatini ne ratio 15 9-23 Not Available [facility] ([facility]) [address] [place], [address], 02/26/2024 08:24:46 02/24/19 25 02/26/2024 COMP. METAB OLIC PANEL (14) sodium 141 mmol/ L 134-14 4 Not Available [facility] ([facility]) [address] [place], [address], 02/26/2024 08:24:46 02/24/19 25 02/26/2024 COMP. METAB OLIC PANEL (14) potassium 4.5 mmol/ L 3.5-5. 2 Not Available [facility] ([facility]) [address] [place], [address], 02/26/2024 08:24:46 02/24/19 25 02/26/2024 COMP. METAB OLIC PANEL (14) chloride 102 mmol/ L 96-106 Not Available [facility] ([facility]) [address] [facility] [place], [address], 02/26/2024 08:24:46 02/24/19 25 02/26/2024 COMP. METAB OLIC PANEL (14) carbon dioxide, total 25 mmol/ L 20-29 Not Available [facility] ([facility]) [address] [facility] [address], [place], [address], 02/26/2024 08:24:46 02/24/19 25 02/26/2024 COMP. METAB OLIC PANEL (14) calcium 9.3 mg/dL 8.7-10 .2 Not Available [facility] ([facility]) [address] [facility] [address], [place], [address], 02/26/2024 08:24:46 02/24/19 25 02/26/2024 COMP. METAB OLIC PANEL (14) protein, total 6.9 g/dL 6.0-8. 5 Not Available [facility] ([facility]) [address] [facility] [address], [place], [address], 02/26/2024 08:24:46 02/24/19 25 02/26/2024 COMP. METAB OLIC PANEL (14) albumin 4.2 g/dL 3.9-4. 9 Not Available [facility] ([facility]) [address] [facility] [place], [address], 02/26/2024 08:24:46 02/24/19 25 02/26/2024 COMP. METAB OLIC PANEL (14) globulin, total 2.7 g/dL 1.5-4. 5 Not Available [facility] ([facility]) [address] [facility] [place], [address], 02/26/2024 08:24:46 01/13/20 25 02/26/2024 COMP. METAB OLIC PANEL (14) bilirubin, total 0.4 mg/dL 0.0-1. 2 Not Available [facility] ([facility]) [address] [facility] [place], [address], 02/26/2024 08:24:46 02/24/19 25 02/26/2024 COMP. METAB OLIC PANEL (14) alkaline phosphatase 135 IU/L 44-121 above high normal Not Available [facility] ([place] [facility]) [address] [facility] [place], [address], 02/26/2024 08:24:46 02/24/19 25 02/26/2024 COMP. METAB OLIC PANEL (14) AST (SGOT) 19 IU/L 0-40 Not Available [facility] ([place] [facility]) [address] [place], [address], 02/26/2024 08:24:46 02/24/19 25 02/26/2024 COMP. METAB OLIC PANEL (14) ALT (SGPT) 34 IU/L 0-32 above high normal Not Available [facility] ([place] [facility]) [address] [place], [address], 02/26/2024 08:24:46 02/24/19 25 02/26/2024 HEMOG LOBIN A1C hemoglobin A1C 9.2 % 4.8-5. 6 above high normal Predi abete s: 5.7 - 6.4 Diabe betty: >6.4 Glyce kristyn contr ol for adult s with diabe betty: <7.0 Not Available [facility] ([place] [facility]) [address] [place], [address], 02/26/2024 08:24:48 02/24/19 25 02/26/2024 VITAM IN B12 vitamin B12 365 pg/mL 232-12 45 Not Available [facility] ([place] [facility]) [address] [place], [address], 02/26/2024 08:24:49 02/24/1902/26/2024 TSH TSH 3.060 uIU/m L 0.450- 4.500 Not Available [facility] ([facility]) [address] [facility] [address], [place], [address], 02/26/2024 08:24:50 02/24/1902/26/2024 CBC WITH DIFFE RENTI AL/PL ATELE T WBC 7.2 x10e3 /uL 3.4-10 .8 Not Available [facility] ([facility]) [address] [facility] [address], [place], [address], 02/26/2024 08:24:52 02/24/1902/26/2024 CBC WITH DIFFE RENTI AL/PL ATELE T RBC 4.89 x10e6 /uL 3.77-5 .28 Not Available [facility] ([facility]) [address] [facility] [address] [place], [place], [address], 02/26/2024 08:24:52 02/24/1902/26/2024 CBC WITH DIFFE RENTI AL/PL ATELE T hemoglobin 14.0 g/dL 11.1-1 5.9 Not Available [facility] ([facility]) [address] [facility] [address] [place], [place], [address], 02/26/2024 08:24:52 02/24/1902/26/2024 CBC WITH DIFFE RENTI AL/PL ATELE T hematocrit 42.4 % 34.0-4 6.6 Not Available [facility] ([facility]) [address] [place], [address], 02/26/2024 08:24:52 02/24/1902/26/2024 CBC WITH DIFFE RENTI AL/PL ATELE T MCV 87 fL 79-97 Not Available [facility] ([facility]) [address] [place], [address], 02/26/2024 08:24:52 02/24/19 25 02/26/2024 CBC WITH DIFFE RENTI AL/PL ATELE T MCH 28.6 pg 26.6-3 3.0 Not Available [facility] ([facility]) [address] [facility] [address] [place], [place], [address], 02/26/2024 08:24:52 02/24/19 25 02/26/2024 CBC WITH DIFFE RENTI AL/PL ATELE T MCHC 33.0 g/dL 31.5-3 5.7 Not Available [facility] ([facility]) [address] [facility] [address] [place], [place], [address], 02/26/2024 08:24:52 02/24/19 25 02/26/2024 CBC WITH DIFFE RENTI AL/PL ATELE T RDW 13.1 % 11.7-1 5.4 Not Available [facility] ([facility]) [address] [facility] [place], [place], [address], 02/26/2024 08:24:52 02/24/19 25 02/26/2024 CBC WITH DIFFE RENTI AL/PL ATELE T platelets 328 x10e3 /uL 150-45 0 Not Available [facility] ([facility]) [address] [facility] [place], [place], [address], 02/26/2024 08:24:52 02/24/1902/26/2024 CBC WITH DIFFE RENTI AL/PL ATELE T neutrophils 67 % notest ab. Not Available [facility] ([facility]) [address] [facility] [place], [place], [address], 02/26/2024 08:24:52 02/24/19 25 02/26/2024 CBC WITH DIFFE RENTI AL/PL ATELE T lymphs 22 % notest ab. Not Available [facility] ([facility]) [address] [facility] [place], [place], [address], 02/26/2024 08:24:52 02/24/19 25 02/26/2024 CBC WITH DIFFE RENTI AL/PL ATELE T monocytes 6 % notest ab. Not Available [facility] (St. [facility]) [address] [facility] [place], [place], [address], 02/26/2024 08:24:52 02/24/19 25 02/26/2024 CBC WITH DIFFE RENTI AL/PL ATELE T eos 3 % notest ab. Not Available [facility] ([facility]) [address] [facility] [place], [place], [address], 02/26/2024 08:24:52 02/24/1902/26/2024 CBC WITH DIFFE RENTI AL/PL ATELE T basos 1 % notest ab. Not Available [facility] ([facility]) [address] [facility] [place], [place], [address], 02/26/2024 08:24:52 02/24/1902/26/2024 CBC WITH DIFFE RENTI AL/PL ATELE T neutrophils (absolute) 4.9 x10e3 /uL 1.4-7. 0 Not Available [facility] ([facility]) [address] [facility] [place], [place], [address], 02/26/2024 08:24:52 02/24/19 25 02/26/2024 CBC WITH DIFFE RENTI AL/PL ATELE T lymphs (absolute) 1.6 x10e3 /uL 0.7-3. 1 Not Available [facility] ([facility]) [address] [facility] [place], [place], [address], 02/26/2024 08:24:52 02/24/1902/26/2024 CBC WITH DIFFE RENTI AL/PL ATELE T monocytes(ab solute) 0.4 x10e3 /uL 0.1-0. 9 Not Available [facility] ([facility]) [address] [place], [address], 02/26/2024 08:24:52 02/24/19 02/26/2024 CBC WITH DIFFE RENTI AL/PL ATELE T eos (absolute) 0.2 x10e3 /uL 0.0-0. 4 Not Available [facility] ([facility]) [address] [facility] [place], [place], [address], 02/26/2024 08:24:52 02/24/19 25 02/26/2024 CBC WITH DIFFE RENTI AL/PL ATELE T baso (absolute) 0.0 x10e3 /uL 0.0-0. 2 Not Available [facility] ([facility]) [address] [facility] [place], [place], [address], 02/26/2024 08:24:52 02/24/19 25 02/26/2024 CBC WITH DIFFE RENTI AL/PL ATELE T immature granulocytes 1 % notest ab. Not Available [facility] ([facility]) [address] [facility] [place], [place], [address], 02/26/2024 08:24:52 02/24/19 25 02/26/2024 CBC WITH DIFFE RENTI AL/PL ATELE T immature grans (abs) 0.0 x10e3 /uL 0.0-0. 1 Not Available [facility] ([facility]) [address] [facility] [place], [place], [address], 02/26/2024 08:24:52 02/24/1902/25/2024 urina lysis , dipst ick Leukocytes Negati ve Not Available In-Office Order Internal Use Only DO Not Attach Compendium DO Not Attach Compendium, Do Not Delete/merge, [id number] 02/25/2024 11:55:39 02/24/19 25 02/25/2024 urina lysis , dipst ick Nitrite negati ve Not Available In-Office Order Internal Use Only DO Not Attach Compendium DO Not Attach Compendium, Do Not Delete/merge, [id number] 02/25/2024 11:55:39 02/24/19 25 02/25/2024 urina lysis , dipst ick Urobilinogen .2 Not Available In-Of fice Order Internal Use Only DO Not Attach Compendium DO Not Attach Compendium, Do Not Delete/merge, 02/25/2024 11:55:39 02/24/19 25 02/25/2024 urina lysis , dipst ick Protein Negati ve Not Available In-Office Order Internal Use Only DO Not Attach Compendium DO Not Attach Compendium, Do Not Delete/merge, 02/25/2024 11:55:39 02/24/19 25 02/25/2024 urina lysis , dipst ick pH 5.5 Not Available In-Office Order Internal Use Only DO Not Attach Compendium DO Not Attach Compendium, Do Not Delete/merge, 02/25/2024 11:55:39 02/24/19 25 02/25/2024 urina lysis , dipst ick Blood Negati ve Not Available In-Office Order Internal Use Only DO Not Attach Compendium DO Not Attach Compendium, Do Not Delete/merge, 02/25/2024 11:55:39 02/24/19 25 02/25/2024 urina lysis , dipst ick Specific [place] 1.025 Not Available In-Off ice Order Internal Use Only DO Not Attach Compendium DO Not Attach Compendium, Do Not Delete/merge, 02/25/2024 11:55:39 02/24/19 25 02/25/2024 urina lysis , dipst ick Ketone Trace Not Available In-Office Order Internal Use Only DO Not Attach Compendium DO Not Attach Compendium, Do Not Delete/merge, 02/25/2024 11:55:39 02/24/19 25 02/25/2024 urina lysis , dipst ick Bilirubin Negati ve Not Available In-Office Order Internal Use Only DO Not Attach Compendium DO Not Attach Compendium, Do Not Delete/merge, 02/25/2024 11:55:39 02/24/19 25 02/25/2024 urina lysis , dipst ick Glucose Negati ve Not Available In-Office Order Internal Use Only DO Not Attach Compendium DO Not Attach Compendium, Do Not Delete/merge, 02/25/2024 11:55:39 02/24/19 25 02/25/2024 urina lysis , dipst ick Appearance Slight ly Cloudy Not Available In-Office Order Internal Use Only DO Not Attach Compendium DO Not Attach Compendium, Do Not Delete/merge, [id number] 02/25/2024 11:55:39 02/24/19 25 02/25/2024 urina lysis , dipst ick Color Yellow Not Available In-Office Order Internal Use Only DO Not Attach Compendium DO Not Attach Compendium, Do Not Delete/merge, 02/25/2024 11:55:39 08/09/19 24 08/06/2023 CT, abdom en + pelvi s, w/o contr ast No observ ation record ed. [address] [place], [address], 08/14/2023 13:54:43 Result Notes None recorded. Problems Name Problem SNOMED Code Status Onset Date Resolution Date Notes Provider Name and Address Organization Details Recorded Time Mixed anxiety and depressi ve disorder 880538457 Active 2018 off med Not Available [facility] 3 16:37:24 [facility] hyperten mikala 81658504 Active 2020 Not Available [facility] 3 16:37:24 Pruritic rash 99833162 Active 2022 due to chronic urticari a -sees derm Emily Plascencia MD Attn: Accounting ,[address] [place], [address] , [facility] 4 10:47:32 Chronic idiopath ic urticari a 471365489 Active 2023 sees derm Emily Plascencia MD Attn: Accounting ,[address] [place], [address] , [facility] 4 15:31:13 Hypothyr oidism 97153373 Active Not Available [facility] 3 16:37:24 Pain in elbow 73993590 Active Not Available [facility] 3 16:37:24 Chronic back pain 513188967 Active Not Available [facility] 3 16:37:24 Anemia 162860067 Active stopped seeing hematolo gist Not Available [facility] 3 16:37:24 Hypergly cemia 11874457 Completed 12/13/2015 Emily Plascencia MD Attn: Accounting ,[address] [place], [address] , [place] [facility] 6 11:47:16 Cobalami n deficien cy 162874734 Active Not Available [facility] 3 16:37:24 Diabetes mellitus 85434753 Active Not Available [facility] 3 16:37:24 Iron deficien cy 10251654 Active -improve d Emily Plascencia MD Attn: Accounting ,[address] [place], [address] , [place] [facility] 4 10:09:36 Acute urinary tract infectio n 398014912 Completed 12/13/2015 Emily Plascencia MD Attn: Accounting ,[address] [place], [address] , [place] [facility] 6 11:47:10 Upper respirat ory infectio n 13024281 Completed 05/11/2016 Emily Plascencia MD Attn: Accounting ,[address] [place], [address] , [place] [facility] 7 11:31:02 Abdomina l pain 40960974 Completed 12/13/2015 Emily Plascencia MD Attn: Accounting ,[address] [place], [address] , [place] - [facility] 6 11:47:51 Notes: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 Please review these documents and add these problems to the patient's chart manually as needed. Problem Notes None recorded. Procedures Surgical History Date Name Laterality Status Provider Name and Address Organization Details Recorded Time 01/04/20 21 right ventricular operation completed Guillermina Holley MA [facility] 06/23/2021 11:30:10 07/30/19 21 Date of Last Pap Smear completed Elyse Colón Nataliia [facility] 07/29/2020 09:41:48 09/11/19 20 Total hysterectomy completed Dolores Gruber MD Attn: Accounting,[address] [facility], [place], [address], [facility] 09/27/2022 18:10:49 08/29/19 20 Most Recent Mammogram completed Elysenataliia Colón [facility] 07/29/2020 09:42:29 01/09/20 17 Colonoscopy with biopsy completed Emily Plascencia MD Attn: Accounting,[address] [facility], [place], [address], [facility] 01/12/2017 11:37:37 02/12/19 09 Dilation and Curettage completed Guillermina [facility] 10/11/2015 15:12:01 02/12/18 84 Tonsillectomy completed [facility] 6 15:12:01 Tubal Ligation completed Jarred Mckeon MA [facility] 08/04/2019 16:02:53 angiography of ventricular shunt completed Jarred Mckeon MA [facility] 08/04/2019 16:03:07 Imaging Results Imaging Date Name Status LastModified by Organiz ation Details LastModified Time 08/06/2023 CT, abdomen + pelvis, w/o contrast completed [facility] [address] [place], [address], 08/14/2023 13:54:43 Procedure Notes None recorded. Medical Equipment None Reported. Allergies Allergen ID Allergen Name Allergen Category Reaction Reaction Severity Criticality Documentation Date Start Date Code Code System Note Provider Name and Address Organization Details Recorded Time 37123 amoxicill in medicatio n rash severe Not available 07/31/2014 723 RxNorm Not Available Not Available Not Available Medications Name Sig Start Date Stop Date Status Note LastModified by Organization Details LastModified Time Prescript ion - Renewal active Not Available Not Available Not Available cyclobenz aprine 10 mg tablet Take 1 tablet(s ) every day by oral route at bedtime. 04/29 completed prn Not Available Not Available Not Available metformin 500 mg tablet Take 1 tablet(s ) every day by oral route with meals. 10/13 completed not taking Not Available Not Available Not Available prednison e 10 mg tablet TAKE 2 TABLETS BY MOUTH DAILY FOR 3 DAYS THEN TAKE 1 TABLET BY MOUTH DAILY 06/10 completed not taking Not Available Not Available Not Available Klor-Con 10 mEq tablet,ex tended release Take 1 tablet every day by oral route. 12/07 completed Not Available Not Available Not Available atorvasta tin 10 mg tablet TAKE 1 TABLET BY MOUTH EVERY DAY active Not Available Not Available No t Available azithromy mojgan 250 mg tablet TAKE 2 TABLETS (500 MG) BY ORAL ROUTE ONCE DAILY FOR 1 DAY THEN 1 TABLET (250 MG) BY ORAL ROUTE ONCE DAILY FOR 4 DAYS 02/24 completed Not Available Not Available Not Available ibuprofen 800 mg tablet active Not Available Not Available Not Available fluconazo le 150 mg tablet TAKE 1 TABLET BY MOUTH EVERY DAY FOR 1 DAY 10/17 completed Not Available Not Available Not Available doxepin 25 mg capsule TAKE 1 TO 3 CAPSULES BY MOUTH AT NIGHT 07/09 completed Not taking Not Available Not Available Not Available prednison e 20 mg tablet TAKE 2 TABLETS BY MOUTH DAILY FOR 7 DAYS 06/10 completed not taking Not Available Not Available Not Available valsartan 160 mg-hydroc hlorothia zide 12.5 mg tablet TAKE 1 TABLET BY MOUTH EVERY DAY active Not Available Not Available No t Available permethri n 5 % topical cream APPLY AND MASSAGE TOPICALL Y FROM HEAD TO SOLES OF FEET 1 TIME. LEAVE ON FOR 8-14 HOURS, THEN REMOVE BY THOROUGH WASHING 06/10 completed Not Available Not Available Not Available amlodipin e 2.5 mg tablet Take 1 tablet every day by oral route. 01/31 completed not taking Not Available Not Available Not Available hydroxyzi ne HCl 50 mg tablet TAKE 1 TABLET BY MOUTH THREE TIMES DAILY NEEDED. FOLLOW UP 06/10 completed Not Available Not Available Not Available triamcino lone acetonide 0.1 % topical cream APPLY THIN LAYER TOPICALL Y TO THE AFFECTED AREA TWICE DAILY 08/26 completed Not using Not Available Not Available Not Available Mobic 15 mg tablet Take 1 tablet every day by oral route as needed with meal for pain. 12/12 completed Not Available Not Available Not Available Tessalon Perles 100 mg capsule Take 1 capsule 3 times a day by oral route as needed for cough. 05/11 completed Not Available Not Available Not Available citalopra m 20 mg tablet Take 1 tablet every day by oral route. 01/31 completed not taking Not Available Not Available Not Available Lasix 20 mg tablet Take 1 tablet every day by oral route as needed. 12/07 completed Not Available Not Available Not Available cyanocoba pat (vit B-12) 1,000 mcg/mL injection solution ADMINIST ER 1 ML IN THE MUSCLE 1 TIME MONTHLY active Not Available Not Available No t Available ferrous sulfate 325 mg (65 mg iron) tablet Take 1 tablet every day by oral route. 2014 active Not Available Not Available Not Avai lable levothyro xine 125 mcg tablet TAKE 1 TABLET BY MOUTH EVERY DAY 2024 active Not Available Not Available Not Avai lable ranitidin e 150 mg tablet Take 1 tablet twice a day by oral route. 01/31 completed pt not taking Not Available Not Available Not Available glimepiri de 4 mg tablet TAKE 1 TABLET BY MOUTH TWICE DAILY active Not Available Not Available No t Available ferrous sulfate 300 mg (60 mg iron)/5 mL oral liquid Take 5 mL twice a day by oral route for 30 days. 09/11 completed changed to 220mg/5m l due to cost Not Available Not Available Not Available BD Luer-Lauren Syringe 3 mL 25 gauge x 1 USE TO INJECT B12 ONCE WEEKLY active Not Available Not Available No t Available hydroxyzi ne HCl 25 mg tablet TAKE 1 TABLET BY MOUTH TWICE DAILY NEEDED 06/10 completed increase d Not Available Not Available Not Available pravastat in 20 mg tablet Take 1 tablet every day by oral route at bedtime. 10/09 completed noncompl iant Not Available Not Available Not Available epinephri ne 0.3 mg/0.3 mL injection , auto-inje ctor INJECT 1 PEN IN THE MUSCLE OF THIGH NEEDED FOR ANAPHYLA XIS active Not Available Not Available No t Available ibuprofen 600 mg tablet TAKE ONE TABLET BY MOUTH EVERY DAY NEEDED 2020 active Not Available Not Available Not Avai lable methylpre dnisolone 4 mg tablets in a dose pack FOLLOW PACKAGE DIRECTIO NS 06/10 completed Not Available Not Available Not Available Cipro 250 mg tablet Take 1 tablet every 12 hours by oral route for 7 days. 2014 active Not Available Not Available Not Avai lable ketoconaz ole 2 % topical cream APPLY TO THE AFFECTED AREA(S) BY TOPICAL ROUTE ONCE DAILY 08/26 completed Not using Not Available Not Available Not Available fluocinon everardo 0.05 % topical cream APPLY EXTERNAL LY TO THE AFFECTED AREA ON THE LEGS TWICE DAILY FOR UP TO 2 WEEKS PER MONTH 07/09 completed Not using Not Available Not Available Not Available levothyro xine 112 mcg tablet TAKE ONE TABLET BY MOUTH EVERY DAY 06/02 completed Not Available Not Available Not Available OraMagicR x mouthwash Benadryl / Maalox / Xylocain e at equal proporti ons -Take 10ml bid by mucous route. 2015 active Not Available Not Available Not Avai lable nitrofura ntoin monohydra te/macroc rystals 100 mg capsule TAKE 1 CAPSULE BY MOUTH EVERY 12 HOURS FOR 7 DAYS active Not Available Not Available No t Available BD Integra Syringe 3 mL 25 gauge x 1 USE DIRECTED TO INJECT VITAMIN B12 ONCE MONTHLY active Not Available Not Available No t Available Januvia 100 mg tablet TAKE 1 TABLET BY MOUTH EVERY DAY active Not Available Not Available No t Available levocetir izine 5 mg tablet TAKE 1 TABLET BY MOUTH TWICE DAILY 07/09 completed derm - not taking Not Available Not Available Not Available ferrous sulfate 220 mg (44 mg iron)/5 mL oral solution Take 10 mL every day by oral route. 04/04 completed not taking Not Available Not Available Not Available Tradjenta 5 mg tablet TAKE 1 TABLET EVERY DAY BY ORAL ROUTE. 02/16 completed Not Available Not Available Not Available Victoza 2-Sebastian 0.6 mg/0.1 mL (18 mg/3 mL) subcutane ous pen injector Inject 0.6 mg every day by subcutan eous route. 04/20 completed not taking Not Available Not Available Not Available Nesina 25 mg tablet TAKE 1 TABLET BY MOUTH DAILY 06/10 completed pt to hold it for possible allergic reaction Not Available Not Available Not Available Invokana 100 mg tablet Take 1 tablet every day by oral route. 10/02 completed Not Available Not Available Not Available Jardiance 10 mg tablet TAKE ONE TABLET BY MOUTH EVERY DAY 10/02 completed Not Available Not Available Not Available Trulicity 0.75 mg/0.5 mL subcutane ous pen injector Inject 0.75 mg every week by subcutan eous route. 02/17 completed Not Available Not Available Not Available Flonase Allergy Relief 50 mcg/actua tion nasal spray,[place] pension Inhale 2 sprays every day by intranas al route. 2015 active Not Available Not Available Not Avai lable True Metrix Go Glucose Meter USE DIRECTED active Not Available Not Available No t Available Ozempic 0.25 mg or 0.5 mg (2 mg/1.5 mL) subcutane ous pen injector Inject 0.25 mg every week by subcutan eous route. 10/13 completed Not Available Not Available Not Available Xolair 150 mg/mL subcutane ous syringe active Not Available Not Available Not Available Rybelsus 7 mg tablet TAKE 1 TABLET BY MOUTH EVERY DAY 02/24 completed sometime s Not Available Not Available Not Available Rybelsus 3 mg tablet TAKE 1 TABLET BY MOUTH EVERY DAY 07/09 completed Not Available Not Available Not Available Wegovy 0.25 mg/0.5 mL subcutane ous pen injector 2024 active Not Available Not Available Not Avai lable Vitals Date Recorded Body height Body mass index (BMI) Body weight Heart rate Respiratory rate Body temperature Oxygen saturation Oxygen saturation in Arterial blood by Pulse oximetry Systolic blood pressure Diastolic blood pressure Provider Name and Address Organization Details Last Updated DateTime 3 170.18 cm 34.8 kg/m2 724231. 3 g 81 /min 12 /min 97.2 [degF] 98 % 98 % 124 mm[Hg] 91 mm[Hg] Guillermina Holley MA [facility] 3 09:21:37 Date Recorded Body height Body mass index (BMI) Body weight Heart rate Respiratory rate Body temperature Oxygen saturation Oxygen saturation in Arterial blood by Pulse oximetry Systolic blood pressure Diastolic blood pressure Provider Name and Address Organization Details Last Updated DateTime 4 170.18 cm 37.8 kg/m2 271371. 84 g 73 /min 14 /min 97.2 [degF] 98 % 98 % 111 mm[Hg] 78 mm[Hg] Guillermina Holley MA [facility] 4 10:20:17 Date Recorded Body height Body mass index (BMI) Body weight Heart rate Respiratory rate Body temperature Oxygen saturation Oxygen saturation in Arterial blood by Pulse oximetry Systolic blood pressure Diastolic blood pressure Provider Name and Address Organization Details Last Updated DateTime 4 170.18 cm 38.4 kg/m2 180494. 85 g 81 /min 16 /min 98.1 [degF] 97 % 97 % 115 mm[Hg] 81 mm[Hg] Shirin Brown MA [facility] 4 09:53:29 Date Recorded Body height Body mass index (BMI) Body weight Heart rate Respiratory rate Body temperature Oxygen saturation Oxygen saturation in Arterial blood by Pulse oximetry Systolic blood pressure Diastolic blood pressure Provider Name and Address Organization Details Last Updated DateTime 4 170.18 cm 37.6 kg/m2 560463. 81 g 88 /min 18 /min 97.5 [degF] 97 % 97 % 117 mm[Hg] 82 mm[Hg] Shirin Brown MA [facility] 4 15:01:14 Date Recorded Body height Body mass index (BMI) Body weight Heart rate Respiratory rate Body temperature Oxygen saturation Oxygen saturation in Arterial blood by Pulse oximetry Systolic blood pressure Diastolic blood pressure Provider Name and Address Organization Details Last Updated DateTime 5 170.18 cm 38.5 kg/m2 042794 g 91 /min 14 /min 97.3 [degF] 97 % 97 % 127 mm[Hg] 89 mm[Hg] Guillermina Holley MA [facility] 5 11:51:02 Social History Question Answer Notes LastModified by Organizat ion Details LastModified Time Tobacco Smoking Status Never Smoker Barbara Ledbetter MA [facility], [place] - [facility] 07/31/2014 11:34:43 Do You Have An Advance Directive? No [email or web address] Information not available 04/10/2017 What Is Your Level Of Alcohol Consumption? None Information not available 12/13/2015 Are You Blind Or Do You Have Difficulty Seeing? No [email or web address] Information not available 07/30/2020 What Is Your Level Of Caffeine Consumption? Heavy Information not available 10/11/2015 How Much Tobacco Do You Chew? None Information not available 10/11/2015 In The 14 Days Before Symptom Onset, Have You Had Close Contact With A Laboratory-confir med COVID-19 While That Case Was Ill? No Information not available 10/01/2019 In The 14 Days Before Symptom Onset, Have You Had Close Contact With A Person Who Is Under Investigation For COVID-19 While That Person Was Ill? No Information not available 10/01/2019 Have You Been To An Area Known To Be High Risk For COVID-19? No Information not available 10/01/2019 Are You Currently Employed? Yes Information not available 02/25/2024 Are You Deaf Or Do You Have Serious Difficulty Hearing? No [email or web address] Information not available 07/30/2020 What Type Of Diet Are You Following? REGULAR Information not available 10/11/2015 Which Illicit Or Recreational Drugs Have You Used? Denies Information not available 10/11/2015 Do You Or Have You Ever Used E-cigarettes Or Vape? Never Used Electronic Cigarettes [email or web address] Information not available 01/31/2019 Education 12 Ged [email or web address] Information no t available 04/10/2017 What Is The Highest Grade Or Level Of School You Have Completed Or The Highest Degree You Have Received? [id number] Information not available 06/23/2021 What Is Your Occupation? [employer] Information not available 06/11/2023 Are There Any Guns Present In Your Home? No [email or web address] Information not available 04/10/2017 Hard Of Hearing Or Deaf In One Or Both Ears? No [email or web address] Information not available 04/10/2017 Legally Blind In One Or Both Eyes? No [email or web address] Information no t available 04/10/2017 Marital Status [email or web address] Informatio n not available 10/11/2015 What Was The Date Of Your Most Recent Tobacco Screening? 02/25/2024 Information not available 02/25/2024 Performs Monthly Self-breast Exam? Yes Information no t available 10/01/2019 What Is Your Relationship Status? Information not available 06/23/2021 Do You Use Your Seat Belt Or Car Seat Routinely? Yes [email or web address] Information not available 07/30/2020 Seat Belts Used Routinely Yes Information not available 04/10/2017 Smoke Alarm In Home Yes [email or web address] Information not available 04/10/2017 Do You Have Smoke And Carbon Monoxide Detectors In Your Home? Yes [email or web address] Information not available 07/30/2020 Do You Or Have You Ever Used Smokeless Tobacco? Never Used Smokeless Tobacco [email or web address] Information not available 01/31/2019 How Much Tobacco Do You Smoke? No Information not available 10/10/2019 General Stress Level Low [email or web address] Information not available 03/12/2020 Do You Feel Stressed (tense, Restless, Nervous, Or Anxious, Or Unable To Sleep At Night)? [id number] Information not available 10/23/2022 Do You Use Any Illicit Or Recreational Drugs? No [email or web address] Information not available 07/30/2020 Do You Use Sunscreen Routinely? No [email or web address] Information not available 10/13/2021 Has Tobacco Cessation Counseling Been Provided? No Information not available 02/16/2022 On What Date Was Tobacco Cessation Counseling Provided? 02/25/2024 Information not available 02/25/2024 Do You Or Have You Ever Used Any Other Forms Of Tobacco Or Nicotine? No [email or web address] Information not available 07/30/2020 Sex: Female Functional Status Question Answer Note LastModified by Organization D etails LastModified Time Are you able to care for yourself? Yes [email or web address] Information n ot available 07/30/2020 What is your exercise level? None work Information not available 06/23/2021 Mental Status None recorded. Family History Nothing Reported. Medical History Condition Response Coronary Artery Disease N Other N Atrial Fibrillation N High Blood Pressure N Breast Cancer N Blood Clots N COPD N Depression N Lung Disease N Breast Problem N Anesthesia Complications N Headaches/Migraines N Anxiety Disorder Y Muscle, Joint, or Bone Problems N Polyps N Infertility N Acid Reflux (GERD) N Cancer N Stroke N Endometriosis N High Cholesterol N Liver Disease N Headaches N Thyroid Problems Y Kidney or Bladder Problems N GI Problems N Acne N Eating Disorder N Skin Problems N Anemia Y Heart Attack ([place]) N Diabetes N Ovarian Cancer N Blood Transfusions N Seizures/Epilepsy N Abuse/Domestic Violence N Asthma N Allergies N Hepatitis N Heart Disease N Pre-Eclampsia N Heart Failure N Osteoporosis N Gynecological History Statement/Question Response Abnormal Pap Y Flow Moderate STIs/STDs N HPV Vaccine Y Duration of Flow (days) 5 Most Recent Mammogram 08/29/2019 Age at Menarche 19 Current Control Method Tubal Ligat ion Age at First Child 19 Frequency of Cycle (Q days) 30 Sexually Active? Y Menses Monthly Y Date of Last Pap Smear 07/29/2020 Sexual Problems? N LMP Definite Obstetrics History GPAL:G 3 P 1 0 2 1 Type Value Full Term 1 Spontaneous 2 Living 1 Total 3 Immunizations Vaccine Type Date Status Note Provider Nam e and Address Organization Details Recorded Time Tdap 6 completed Not Available [facility]01/2019 02:31:10 Influenza, split virus, quadrivalent, preservative 6 completed Not Available [facility] 03/01/2019 02:42:35 pneumococcal polysaccharide PPV23 7 completed Not Available [facility] 03/01/2019 02:33:58 Influenza, split virus, quadrivalent, preservative 7 completed Not Available [facility] 03/01/2019 02:49:13 Influenza, split virus, quadrivalent, preservative 8 completed Not Available [facility] 03/01/2019 02:46:42 Influenza, split virus, quadrivalent, preservative 9 completed Not Available [facility] 03/01/2019 02:38:45 Influenza, split virus, quadrivalent, preservative 5 completed Not Available [facility] 03/01/2019 02:32:09 Past Encounters Encounter ID Performer Location Encounter Start Date Encounter Closed Date Diagnosis/Indication Diagnosis SNOMED-CT Code Diagnosis ICD10 Code Diagnosis Note [id number] [facility] (Adult Med) [address] [facility] [place] [address] 07/31/2014 11:24:55 07/31/2014 12:30:08 Hypothyroidism 16566705 continue same Pain in elbow 15966189 o f left side due to lifting at work Ice Mobic daily prn Avoid lifting Adult heal th examination [id number] Chronic back pain 715407878 Mobic with Flexeril [id number] Ynes Aguilar [facility] (Adult Med) [address] [place] [address] 08/06/2014 14:22:39 08/06/2014 16:05:34 Cobalamin deficiency [id number] [facility] (Adult Med) [address] [place] [address] 08/13/2014 14:53:02 08/13/2014 17:53:52 Cobalamin deficiency [id number] [facility] ([facility]ult [facility]) [address] [place] [address] 08/21/2014 14:07:24 08/21/2014 15:41:17 Diabetes mellitus 72105972 newly diagnosed- pt is aware of DM diet ( had gestationa l DM) Start pt on Metformine Iron deficiency 01174322 pt to try OTC slow release iron since she did not tolerate high dose- pt to check with [facility] to see hematologi st for iron transfusio n check occult blood Cobalamin deficiency 475021250 continue B12 injection once a wk for 2-3 months and then once every 2 wks [id number] Isabel Hirsch RN [facility] (Adult Med) [address] [facility] [place] [address] 11/17/2014 10:32:39 11/17/2014 12:12:18 Acute urinary tract infection 768470390 N39.0 Increase fluid Diabetes mellitus 940736 09 E11.9 newly diagnosed- pt is aware of DM diet ( had gestationa l DM) noncomplia nt with med due to financial problems pt to take Metformine -pt to use [facility] Hypothyroidism 35737612 E03.9 continue same Administra tion of influenza vaccine 41864257 Z23 Cobalamin deficiency 190 426256 E53.8 continue B12 injection once a wk for 2-3 months and then once every 2 wks Anemia 240579253 D51.8 due to vit B12 and iron pt to take on weekly vit B12 and iron tab [id number] [facility] [address] [facility] [place] [address] 04/30/2015 13:51:07 04/30/2015 16:26:55 Upper respiratory infection 52994061 J06.9 [id number] [facility] [address] [facility] [place] [address] 05/17/2015 11:23:18 05/17/2015 15:57:36 Abdominal pain 20745824 R10.9 Adviced pt to Increase fluid and call office later this week if symtoms hasn't changed. Consulted Dr. Almaguer [id number] Emily Plascencia MD [facility] (Adult Med) [address] [facility] [place] [address] 05/24/2015 12:00:38 05/24/2015 12:58:54 Upper respiratory infection 80817886 J06.9 [id number] Emily Plascencia MD [facility] (Adult Med) [address] [facility] [place] [address] 06/11/2015 14:01:55 06/11/2015 16:51:17 Diabetes mellitus 94146897 E11.9 noncomplia nt with med - pt is not taking metformine pt to take Metformine -pt to use [facility] pharmacy Hypothyroidism 91818146 E03.9 continue same Cobalamin deficiency 190 746188 E53.8 continue B12 injection once a month [id number] [facility] [address] [place] [address] 10/11/2015 14:43:36 10/11/2015 16:56:51 Diabetes mellitus 88150297 E11.9 noncomplia nt with med - pt is not taking metformine pt to take Metformine -pt to use [facility] pharmacy Hypothyroidism 18940799 E03.9 continue Levothyrox in 125 mcg daily Anemia 054910167 D51.8 due to vit B12 and iron pt to take vit B12 injection monthly pt did not tolerate iron tab -needs to have iron transfusio n for which pt does not have insurance -awaiting to get insurance through work Administra tion of diphtheria, pertussis, and tetanus vaccine 319223721 Z23 [id number] [facility] [address] [place] [address] 12/13/2015 11:22:07 12/13/2015 12:15:05 Upper respiratory infection 44301684 J06.9 Administra tion of influenza vaccine 02987844 Z23 [id number] [facility] [address] [place] [address] 05/11/2016 11:08:54 05/11/2016 16:08:16 Diabetes mellitus 63762747 E11.9 noncomplia nt with med - pt is not taking metformine Hypothyroidism 89583030 E03.9 continue Levothyrox in 125 mcg daily Cobalamin deficiency 190 576075 E53.8 continue B12 injection once a month Anemia 593386112 D51.8 due to vit B12 and iron pt to take vit B12 injection monthly pt did not tolerate iron tab -needs to have iron transfusio n for which pt does not have insurance -[facility] inforamtio n given to pt Indigestion 129248064 K3 0 pt also has some tenderness on LLQ -discussed about diverticul itis or diverticul ar disease pt to go to ER if pain gets worse ( pt does not have insurance for imaging ) [id number] [facility] [address] [place] [address] 09/11/2016 14:49:31 09/11/2016 15:40:11 Diabetes mellitus 38904523 E11.9 noncomplia nt with med - pt is not taking metformine dailypt is watching dietDeclin ed statin therapy Hypothyroidism 21009781 E03.9 continue Levothyrox in 125 mcg daily Anemia 601043324 D51.8 due to vit B12 and iron pt to take vit B12 injection monthly pt did not tolerate iron tab -needs to have iron transfusio n for which pt does not have insurance -[facility] informatio n given to pt -will refer to [facility]ologi [facility] pt agreed to do payment plan with specialist Administra tion of pneumococcal vaccine 67890916 Z23 [id number] MD Ingrid Barba (Adult Med) [address] [place] [address] 01/12/2017 10:49:13 01/16/2017 14:09:43 Diabetes mellitus 09327624 E11.9 pt is aware of DM diet ( had gestationa l DM)pt to take Metformine as prescribed Hypothyroidism 98977047 E03.9 continue Levothyrox in 125 mcg daily Anemia 016640805 D51.8 due to vit B12 and iron pt to take vit B12 injection monthly pt did not tolerate iron tab -needs to have iron transfusio n by hematologi pt also had EGD /colonosco py on 12/29 Administra tion of influenza vaccine 78966929 Z23 [id number] Miller Quintero (MUSIC THERAPIST) [address] [place] [address] 04/10/2017 10:37:06 04/13/2017 11:56:36 Gynecologic examination 54708307 Z01.411 Last pap done 07/30/13 was negative with negative hr-HPV. Therefore, no pap needed. Venereal d isease screening 563665778 Z11.3 RTO one week for results. Screening for malignant neoplasm of breast 911594641 Z12.31 IB[facility]P info. given. Pain in pelvis 80467323 R10.2 Normal exam x pain. Will get US. RTO 3 days p US for results and POC. Obesity 700124750 E66.9 Nutrition and exercise discussed. [id number] Miller Quintero (MUSIC THERAPIST) [address] [place] [address] 05/30/2017 09:05:03 06/01/2017 11:08:47 Polyp of corpus uteri 88295432 N84.0 Pelvic US shows a 1.1 cm mass (likely polyp) in the endometria l cavity, probably benign, dwp. Remainder of US wnl, dwp. Option of hysterosco py with D&C d/w pt. Pt. wants to have it done. She does not have insurance but is on the [facility] program at [facility]. Benefits, risks, and alternativ es to Hysterosco py with D&C d/w pt. Pt. expressed understand ing. All pt. questions answered. Will schedule. Venereal d isease screening 462035657 Z11.3 Vaginal culture was negative for gonorrhea, chlamydia, and trichomona s, dwp. STD panel was also completely negative. Individual test results dwp. [id number] [facility] [address] [place] [address] 06/06/2017 11:37:47 06/08/2017 09:09:08 Hypothyroidism 73836474 E03.9 continue Levothyrox in 125 mcg daily Diabetes mellitus 505148 09 E11.9 pt is aware of DM diet ( had gestationa l DM)pt is off of Metformine Anemia 048897527 D51.8 due to vit B12 and iron pt is seeing hematologi st , getting iron transfusio n and s/l b 12 pt did not tolerate iron tab pt also had EGD /colonosco py on 12/29 Cobalamin deficiency 190 396597 E53.8 pt is on S/L B12 per hematologi st Urinary symptoms 8346689 08 R39.9 Increase fluid [id number] [facility] [address] [place] [address] 09/06/2017 11:10:25 09/10/2017 16:16:27 Diabetes mellitus 84612503 E11.9 pt is aware of DM diet ( had gestationa l DM)pt is off of Metformine Hypothyroidism 50130465 E03.9 continue Levothyrox in 125 mcg daily Anemia 271669347 D51.8 due to vit B12 and iron pt is seeing hematologi st , getting iron transfusio n and s/l b 12 pt did not tolerate iron tab pt also had EGD /colonosco py on 12/29 Edema of l ower extremity 411184789 R60.0 pt is recovering from severe anemia pt to try gentle diuresisle g elevation /low salt diet [id number] Miller Quintero (MUSIC THERAPIST) [address] [place] [address] 09/19/2017 08:43:41 09/21/2017 17:44:12 Polyp of corpus uteri 10793656 N84.0 Pelvic US shows a 1.1 cm mass (likely polyp) in the endometria l cavity, probably benign, dwp. Remainder of US wnl, dwp in May and again today. Option of hysterosco py with D&C d/w pt. in May and again today. I do not feel a hysterecto my is indicated for pt. at this time, dwp. If pt. is accepted into the m[facility]y program at [facility], will be happy to perform the hysterosco py with polypectom y previously offered to pt, dwp.NB: Pt. brought labs from hematologi st that actually show a stable H&H although iron levels are low. [id number] MD Opal [facility]ah[facility]to (Adult Med) [address] [place] [address] 12/07/2017 10:56:45 12/10/2017 16:57:22 Administration of influenza vaccine 66245521 Z23 Hypothyroidism 17278481 E03.9 continue Levothyrox in 125 mcg daily Diabetes mellitus 867566 09 E11.9 pt is aware of DM diet ( had gestationa l DM)pt is off of Metformine Anemia 576813172 D51.8 due to vit B12 and iron pt is seeing hematologi st , getting iron transfusio n and s/l b 12 pt did not tolerate iron tab pt also had EGD /colonosco py on 12/29 Chronic back pain 772005 002 M54.9 Mobic with Flexerilra nitidine for GI px [id number] MD Ingrid Barba (Adult Med) [address] [place] [address] 02/19/2018 11:29:08 02/19/2018 12:36:54 Acute bronchitis 33715107 J20.9 keep good hydration [id number] MD Ingrid Barba (Adult Med) [address] [place] [address] 06/28/2018 10:43:58 07/01/2018 10:34:22 Hypothyroidism 67417857 E03.9 continue Levothyrox in 125 mcg daily Diabetes mellitus 662430 09 E11.9 pt is aware of DM diet ( had gestationa l DM)pt is noncomplia nt with metformin -counselle d Anemia 782335443 D51.8 due to vit B12 and iron pt is seeing hematologi st , received iron transfusio n and s/l b 12 pt did not tolerate iron tab pt also had EGD /colonosco py on 12/29 Chronic back pain 858141 002 M54.9 Mobic with Flexerilra nitidine for GI px Mixed anxi ety and depressive disorder 213019259 F41.8 start pt on celexa [id number] [facility] [address] [place] [address] 09/27/2018 10:25:33 09/30/2018 10:11:21 Mixed anxiety and depressive disorder 087603211 F41.8 pt did not start celexa yet -pt is going to start-pt is reassured -pt said she is going to take it Diabetes mellitus 531170 09 E11.9 pt is aware of DM diet ( had gestationa l DM)pt is noncomplia nt with metformin -counselle d Hypothyroidism 39224489 E03.9 continue Levothyrox in 125 mcg daily [id number] Emily Plascencia MD [facility] (Adult Med) [address] [place] [address] 12/20/2018 12:05:19 12/23/2018 08:50:29 Administration of influenza vaccine 71183841 Z23 Diabetes mellitus 765078 09 E11.9 pt is aware of DM diet ( had gestationa l DM)pt is noncomplia nt with metformin -counselle d Hypothyroidism 35807180 E03.9 continue Levothyrox in 125 mcg daily Mixed anxi ety and depressive disorder 302017057 F41.8 pt is noncomplia nt with celexa. Anemia 524863261 D51.8 due to vit B12 and iron pt was seeing hematologi st , received iron transfusio n and s/l b 12 pt did not tolerate iron tab pt also had EGD /colonosco py on 12/29 Lateral epicondylitis 20 8938220 M77.11 ice /exercise /avoid lifting and repeated movements Elevated blood-pressure reading without diagnosis of hypertension 479148379 R03.0 monitor bppt did not have high bp in the past [id number] [facility] [address] [place] [address] 01/31/2019 11:05:17 02/03/2019 09:31:27 Anemia 117397373 D51.8 due to vit B12 and iron pt to f/u with hematologi st for iron transfusio n -pt was told to get picc line prior to iron transfusio n due to poor iv access per pt. pt did not tolerate iron tab. pt also had EGD /colonosco py on 12/29 Diabetes mellitus 571359 09 E11.9 pt is aware of DM diet ( had gestationa l DM)pt is noncomplia nt with metformin/ statin -counselle d several times -pt still continues to be noncomplia nt Hypothyroidism 26545775 E03.9 continue Levothyrox in 125 mcg daily Mixed anxi ety and depressive disorder 398085253 F41.8 pt is noncomplia nt with celexa.Doi ng fine without med per pt .-declined med or counsellin g at this time . [id number] MD Ingrid Barba (Adult Med) [address] [place] [address] 04/04/2019 11:11:30 04/07/2019 08:38:41 Diabetes mellitus 32398374 E11.9 pt is aware of DM diet ( had gestationa l DM)pt is noncomplia nt with metformin/ statin -counselle d several times -pt still continues to be noncomplia nt Hypothyroidism 60077707 E03.9 continue Levothyrox in 125 mcg daily Anemia 819943259 D51.8 due to vit B12 and iron -getting iron transfusio n. pt to f/u with hematologi st for iron transfusio n pt did not tolerate iron tab. pt also had EGD /colonosco py on 12/29 . pt needs to see back up scan coordinator to discuss about heavy bleeding . Essential hypertension 33857710 I10 pt to start valsartan hct 160/12.5 mg daily .pt to come in for bp check [id number] BRIAN [address] [facility] Dr Aguilar [address] [place] [address] 04/30/2019 08:51:36 04/30/2019 14:37:13 Screening mammography 37382742 Z12.31 Patient educated on the importance of annual breast cancer screenings with mammograph y. Patient given order to schedule mammogram. Pt given info about [facility]P. Pt aware she needs to call to get mammogram covered prior to completing Routine gy necologic examination done 7645842455 9101 Z01.419 -Educated on the importance of SBE and awareness. -Discussed the importance of cervical cancer screenings -Educated osteoporos is prevention including calcium rich foods, weight bearing exercise. -Discussed the importance of exercise. -Nutrition discussed and the importance of a diet rich in fruits, vegetable, whole grains, and lean proteins. -Counseled regarding prevention of STD's and screening options, condom use and prevention . -Advised avoidance of tobacco, alcohol, and drugs. -Discussed sun safety and the importance of sunscreen. Abnormal u terine bleeding 1615485061 9100 N93.9 Pt had labs drawn on 04/29/19. CBC show normal H and H, Iron studies normal, B 12 normal, and ferritin 963. Pt reports she was notified to follow up with Dr. Riggs in may 2019 to see if she needs additional iron transfusio n. Pelvic US in 2018 showed Small 1.1 cm hyperechoi c possible mass in the mid portion of the endometria l canal. This is nonspecifi c but may be evidence for possible polyp. 2.3 cm cyst in the right ovary.-TSH normal on 04/04/19. Pt following up with PCP for hypothyroi dism.-Pt educated on management of AUB. Pt not interested in medication at this time. Pelvic US ordered for patient to complete. Pt notified to follow up after pelvic US and as needed if issues occur. Pt reports she is apart of [facility] program and [facility] and she getting 50% percent off testing there. Pt also given informatio n about [facility]. Pt notified to call office if unable to complete US. Body mass index 30+ - obesity 029091955 Z68.34 Pt educated on risks of obesity and importance of lifestyle modificati ons. Pt reports she is working with PCP on weight loss. Pt notified to continue to follow up with PCP. [id number] MD Anthony Riggins 14 OB [address] [facility] [address] [place] [address] 08/04/2019 13:36:40 08/05/2019 12:17:37 Menorrhagia 749804535 N92.0 Will perform pelvic exam and assess for hysterecto my. Dysmenorrhea 278203028 N 94.6 [id number] MD Jered Rigginsn 14 OB [address] [facility] [address] [place] [address] 08/18/2019 15:32:30 08/19/2019 13:22:30 Dysmenorrhea 717909281 N94.6 Menorrhagia 537967777 N9 2.0 Desires hysterecto my with minimally invasive surgeon. [id number] [facility] [address] [place] [address] 10/10/2019 08:18:14 10/14/2019 11:32:45 Hypothyroidism 36723980 E03.9 continue Levothyrox in 125 mcg daily Diabetes mellitus 745090 09 E11.9 pt is aware of DM diet ( had gestationa l DM)pt is noncomplia nt with metformin/ statin -counselle d several times -pt still continues to be noncomplia nt Anemia 170398928 D51.8 due to vit B12 and iron -pt stopped iron transfusio n. pt recently had hysterecto my for heavy bleeding in 08/2019. pt did not tolerate iron tab. pt also had EGD /colonosco py on 12/29 . Cobalamin deficiency 190 606502 E53.8 pt is on S/L B12 per hematologi st [id number] [facility] [address] [place] [address] 03/12/2020 08:15:42 03/12/2020 12:55:27 Diabetes mellitus 70987326 E11.9 pt is aware of DM diet ( had gestationa l DM)pt is noncomplia nt with metformin/ statin -counselle d several times -pt still continues to be noncomplia nt Hypothyroidism 35689730 E03.9 continue Levothyrox in 112 mcg daily Anemia 244104802 D51.8 due to vit B12 and iron -pt stopped iron transfusio n./ taking vit b12 pt had hysterecto my for heavy bleeding in 08/2019. pt did not tolerate iron tab. pt also had EGD /colonosco py on 12/29 . Essential hypertension 31816131 I10 pt to continue valsartan hct 160/12.5 mg daily . [id number] BRIAN [address] [facility] [address] [place] [address] 07/29/2020 09:32:41 07/30/2020 10:44:54 Gynecologic examination 68181936 Z01.419 -Educated on the importance of SBE and awareness. -Educated osteoporos is prevention including calcium rich foods, weight bearing exercise.- Discussed the importance of exercise.- Nutrition discussed and the importance of a diet rich in fruits, vegetable, whole grains, and lean proteins.- Counseled regarding prevention of STD's and screening options, condom use and prevention .-Advised avoidance of tobacco, alcohol, and drugs.-Dis cussed sun safety and the importance of sunscreen. History of abnormal cervical Papanicolaou smear 417951990 Z87.42 Vaginal pap completed. If normal no additional pap smears needed. Screening mammography 24 590663 Z12.31 Patient educated on the importance of annual breast cancer screenings with mammograph y. Patient given order to schedule mammogram. Edema of l ower extremity 262277636 R60.0 Labs ordered and pt referred to cardiology . Pt educated on importance of follow up. Pt educated on warning signs and given ER precaution s. [id number] Emily Plascencia MD [facility] (Adult Med) [address] [place] [address] 07/30/2020 09:46:02 08/03/2020 12:07:47 Essential hypertension 65665710 I10 pt to continue valsartan hct 160/12.5 mg daily . Diabetes mellitus 593189 09 E11.9 pt is aware of DM diet ( had gestationa l DM)pt is non compliant with metformin/ statin -counselle d several times -pt still continues to be non compliant Hypothyroidism 05568179 E03.9 continue Levothyrox in 112 mcg daily Cobalamin deficiency 190 232824 E53.8 pt is on B12 injection -pt to do once a month Edema of l ower extremity 677886353 R60.0 leg elevation /low salt diet -check echo and venous doppler to assess venous insufficie ncy Renewal of prescription 157959601 Z76.0 [id number] [facility] [address] [place] [address] 06/23/2021 10:59:14 06/24/2021 09:08:46 Essential hypertension 34619598 I10 pt to continue valsartan hct 160/12.5 mg daily . Diabetes mellitus 133599 E11.9 pt is aware of DM diet ( had gestationa l DM)pt is non compliant with metformin/ statin -counselle d several times -pt still continues to be non compliant- pt is willing to try ozempic Hypothyroidism 25879855 E03.9 continue Levothyrox in 112 mcg daily Obesity 292496823 E66.9 Renewal of prescription 097566569 Z76.0 Cobalamin deficiency 190 285786 E53.8 pt is on B12 injection -pt to do once a month [id number] [facility] [address] [place] [address] 10/13/2021 14:16:21 10/14/2021 07:46:06 Essential hypertension 57766705 I10 pt to continue valsartan hct 160/12.5 mg daily . Diabetes mellitus 442908 E11.9 pt is aware of DM diet ( had gestationa l DM)pt is non compliant with metformin/ statin -counselle d several times -pt still continues to be non compliant- pt did not tolerate ozempicpt to try januvia Hypothyroidism 19437257 E03.9 continue Levothyrox in 112 mcg daily Cobalamin deficiency 190 587729 E53.8 pt is on B12 injection -pt to do once a month [id number] [facility] [address] [place] [address] 02/16/2022 11:19:38 02/21/2022 10:04:25 Essential hypertension 03179741 I10 pt to continue valsartan hct 160/12.5 mg daily . Diabetes mellitus 804665 E11.9 pt is aware of DM diet ( had gestationa l DM)pt is non compliant with metformin/ statin -counselle d several times -pt still continues to be non compliant- pt did not tolerate ozempicpt did not start nesina eitherpt is willing to try trulicity Hypothyroidism 92187356 E03.9 continue Levothyrox in 112 mcg daily Dysuria 50618795 R30.0 urine dipstick-n eg- pt to keep good hydrationi f problem persists or worsen -consider to rx with antibiotic in future [id number] MD Ingrid Barba (Adult Med) [address] [place] [address] 04/20/2022 11:07:37 04/26/2022 15:43:13 Essential hypertension 30601281 I10 pt to continue valsartan hct 160/12.5 mg daily . Diabetes mellitus 859703 09 E11.9 pt is aware of DM diet ( had gestationa l DM)pt is non compliant with metformin/ statin -counselle d several times -pt still continues to be non compliant- pt did not tolerate ozempicpt is on nesina Hypothyroidism 74635327 E03.9 continue Levothyrox in 112 mcg daily Obesity [id number] E66.9 Iron deficiency 37745148 E61.1 pt to try OTC slow release iron since she did not tolerate high dose- pt to check with [facility] to see hematologi for iron transfusio n Cobalamin deficiency 190 088329 E53.8 pt is on B12 injection -pt to do once a month [id number] MD Ingrid Barba (Adult Med) [address] [place] [address] 06/02/2022 10:51:00 06/06/2022 16:20:53 Essential hypertension 59543884 I10 pt to continue valsartan hct 160/12.5 mg daily . Diabetes mellitus 972509 09 E11.9 pt is aware of DM diet ( had gestationa l DM)pt is non compliant with metformin/ statin -counselle d several times -pt still continues to be non compliant- pt did not tolerate ozempicpt is on nesina-add aglt2 i Hypothyroidism 85592498 E03.9 pt to increase Levothyrox in 125 mcg daily Obesity 089196233 E66.9 [id number] MD Ingrid Barba (Adult Med) [address] [place] [address] 10/02/2022 11:59:31 10/03/2022 14:09:56 Itching of skin 579860656 L29.9 without rash-pt denied any h/o exposure to scabies or no one else in the family has symptomspt has uncontroll ed DM which may play a part-hospi zina labs cbc/cmp were unremarkab le- will reassess Abdominal pain 91434331 R10.9 of L/abdomina l pain- nonspecifi c tenderness -pt does not have insurance for CT - pt to go to ER if problem persists Diabetes mellitus 921574 09 E11.9 -not controlled -pt is aware of DM diet ( had gestationa l DM)pt did not tolerate metformin- pt did not tolerate ozempicpt is on nesina-pt did not start invokana- pt to start glimepride 4 mg daily Vaginitis 93548714 N76.0 [id number] [facility] [address] [facility] [place] [address] 10/17/2022 14:45:24 10/23/2022 14:30:42 Diabetes mellitus 30895626 E11.9 -not controlled -pt is aware of DM diet ( had gestationa l DM)pt did not tolerate metformin- pt did not tolerate ozempicpt is on nesina-pt did not start invokana- pt to start glimepride 4 mg daily Upper resp iratory infection 64041542 J06.9 - keep good hydration Pruritic rash 51724190 L 28.2 with hives-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- rxed for scabies/al lergic dermatitis pt to take antihistam ine as well- will rx with antifingal topicalpt has apt in 2-3 month with dermpt to hold nesina for now which was new med started during that time Diabetes mellitus 918679 09 E11.9 -not controlled -pt is aware of DM diet ( had gestationa l DM)pt did not tolerate metformin- pt did not tolerate ozempicpt to hold nesina for possible allergic reaction-p t did not start invokana- started on glimepride 4 mg daily- pt to increase bid [id number] MD Ingrid Barba (Adult Med) [address] [place] [address] 06/11/2023 09:36:32 06/12/2023 10:38:20 Essential hypertension 14392607 I10 pt to continue valsartan hct 160/12.5 mg daily . Diabetes mellitus 404711 09 E11.9 -not well controlled with repeated steroid use for chronic urticaria- pt is aware of DM diet ( had gestationa l DM)pt did not tolerate metformin- pt did not tolerate ozempic in the past - pt is willing to try rybelsus -pt to start rybelsus 3mg- pt is on glimepride 4 mg bid Hypothyroidism 14257757 E03.9 pt to continue Levothyrox in 125 mcg daily Pruritic rash 69097483 L 28.2 due to chronic urticaria- improvingp t is on xolair per dermpt to take antihistam ine as well Obesity 586272939 E66.9 Cobalamin deficiency 190 184615 E53.8 pt is on B12 injection -pt to do once a month Mixed anxi ety and depressive disorder 787895698 F41.8 mildDoing fine without med per pt .-declined med or counsellin g at this time . [id number] MD Ingrid Barba (Adult Med) [address] [place] [address] 07/10/2023 09:37:06 07/11/2023 15:14:55 Essential hypertension 51835651 I10 pt to continue valsartan hct 160/12.5 mg daily . Diabetes mellitus 461556 09 E11.9 -not well controlled with repeated steroid use for chronic urticaria- pt is aware of DM diet ( had gestationa l DM)pt did not tolerate metformin- pt did not tolerate ozempic in the past - pt is tolerating rybelsus -increase it to 7 mg- pt is on glimepride 4 mg bid Hypothyroidism 69564915 E03.9 pt to continue Levothyrox in 125 mcg daily Chronic id iopathic urticaria 135668959 L50.8 -pt sees derm Hypoalbuminemia 97179404 4 E88.09 with DM and leg edema-chec k urine for prot Left lower quadrant pain 899899269 R10.32 - pt to follow soft diet- go to ER if pain gets worse or if any fever-che k [place] [id number] MD Ingrid Barba (Adult Med) [address] [place] [address] 08/27/2023 14:42:51 08/29/2023 14:47:24 Acute sinusitis 63668133 J01.90 - keep good hydration /steam inhalation off note for work including missed days [id number] MD Ingrid Barba (Adult Med) [address] [place] [address] 02/25/2024 11:20:18 02/29/2024 12:44:04 Urinary symptoms 504682154 R39.9 Increase fluid-pt has clinical UTI - will rx with macrobid Diabetes mellitus 672068 09 E11.9 -not well controlled with repeated steroid use for chronic urticaria- pt is aware of DM diet ( had gestationa l DM)pt did not tolerate metformin- pt did not tolerate ozempic in the past /wants to try wkly injection again instead of oral rybelsus -will start pt on glp-1 again- pt is on glimepride 4 mg bid Essential hypertension 01971042 I10 pt to continue valsartan hct 160/12.5 mg daily . Hypothyroidism 93427523 E03.9 pt to continue Levothyrox in 125 mcg daily Cobalamin deficiency 190 907047 E53.8 pt is on B12 injection -pt to do once a month Pruritic rash 25208949 L 28.2 due to chronic urticaria- improvingp t is on xolair per dermpt to take antihistam ine as well Health Concerns Section Related Observation LastModified by Organization Detai ls LastModified Time None Recorded Concern Status LastModified by Organization Details LastModified Time None Recorded Advance Directives Directive N: Payers Encounter Date Sequence Insurance Name Policy Number Policy Herrera Covered Member ID Herrera Member ID Guarantor Name 06/11/2023 2 *SELF PAY* Ma ndy Lansdon 06/11/2023 1 [place] [id number] Mirna Lansdon [id number] Mirna Lansdon 07/10/2023 2 *SELF PAY* Ma ndy Lansdon 07/10/2023 1 [place] [id number] Mirna Lansdon [id number] Mirna Lansdon 08/27/2023 2 *SELF PAY* Ma ndy Lansdon 08/27/2023 1 [place] [id number] Mirna Lansdon [id number] Mirna Lansdon 02/25/2024 2 *SELF PAY* Ma ndy Lansdon 02/25/2024 1 [place] [id number] Mirna Lansdon [id number] Mirna Lansdon Notes Date Note Type Note Provider Name and Address Organization Details Recorded Time 12/01/19 23 text/htm l General Rash/Skin LesionReported bypatient.Location:neck; chest (front area) Quality:itchy;multiple;genera lized Onset/Timing:recurring Context:no new detergents or skin products; no one else with similar rash; 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 pt sees neuro.pt had hysterectomy on 08/2019 ( heavy bleeding )pt was seeing rail director for iron transfusion , stopped seeing now . Emily Plascencia MD Attn: Accounting,[address] [facility], [place], [address], [facility] 11/30/2022 14:10:14 06/11/19 24 text/htm l Diabetes F/UReported bypatient.Labs:last A1C result: 10.6 Context:checking feet regularly; not missing doses of medications; no side effects from medications;not seeing eye doctor yearly; pt is watching diet Associated Symptoms:no headaches; no numbness of feetGeneral Rash/Skin LesionReported bypatient.Location:neck; chest Quality:itchy;multiple;genera lized Severity:improving Context:no new detergents or skin products; no one else with similar rash Aggravating factors:nothing makes it worse Associated Symptoms:no feverNotes:pt sees derm and getting rxed for chronic urticaria .Hypertension F/UReported bypatient.Associated Symptoms:no dizziness; no chest pain; no shortness of breath; no palpitations; no edema Lifestyle:regular exercise; limiting/avoiding salt Medications:taking medications as directed; no side effects from medicationThyroidReported bypatient.Quality:chronic Context:history of hypothyroidism Modifying Factors:medication (levothyroxin) Associated Symptoms:no cold intolerance; no weight gain; no palpitations; no constipation pt had revision of VPS shunt in 12/2020 due to breakage of tubing . pt was seen by neuro.pt had hysterectomy on 08/2019 ( heavy bleeding )pt was seeing rail director for iron transfusion , stopped seeing now . Emily Plascencia MD Attn: Accounting,[address] [facility], [place], [address], [facility] 06/11/2023 15:32:14 07/10/19 24 text/htm l Abdominal PainReported bypatient.Location:LLQ Quality:aching;stabbing Duration:3-4 days Onset/Timing:wax/wane Associated Symptoms:no fever; no blood in the urine; no change in bowel habit or denied urinary scymptomsDiabetes F/UReported bypatient.Labs:last A1C result: 9.7 Context:checking feet regularly; not missing doses of medications; no side effects from medications;not seeing eye doctor yearly; pt is watching diet Associated Symptoms:no headaches; no numbness of feetHypertension F/UReported bypatient.Associated Symptoms:no dizziness; no chest pain; no shortness of breath; no palpitations; no edema Lifestyle:regular exercise; limiting/avoiding salt Medications:taking medications as directed; no side effects from medicationThyroidReported bypatient.Quality:chronic Context:history of hypothyroidism Modifying Factors:medication (levothyroxin) Associated Symptoms:no cold intolerance; no weight gain; no palpitations; no constipation pt had revision of VPS shunt in 12/2020 due to breakage of tubing . pt was seen by neuro.pt had hysterectomy on 08/2019 ( heavy bleeding )pt was seeing rail director for iron transfusion , stopped seeing now . Emily Plascencia MD Attn: Accounting,[address] [place], [address], [facility] 07/10/2023 14:28:15 08/27/19 24 text/htm l Upper Respiratory SymptomsReported bypatient.Location:head Quality:congested;hurts to swallow Severity:moderate Duration:4 days Context:no sick contacts; non-smoker Associated Symptoms:no shortness of breath; no wheezing; no fever;fatigue;sore throat Emily Plascencia MD Attn: Accounting,[address] [facility], [place], [address], [facility] 08/27/2023 15:42:27 02/24/19 25 text/htm l Diabetes F/UReported bypatient.Labs:last A1C result: 9.7 Context:checking feet regularly; no side effects from medications;not seeing eye doctor yearly;missing doses of medication; pt is watching diet Associated Symptoms:no headaches; no numbness of feetHypertension F/UReported bypatient.Associated Symptoms:no dizziness; no chest pain; no shortness of breath; no palpitations; no edema Lifestyle:regular exercise; limiting/avoiding salt Medications:taking medications as directed; no side effects from medicationThyroidReported bypatient.Quality:chronic Context:history of hypothyroidism Modifying Factors:medication (levothyroxin) Associated Symptoms:no cold intolerance; no weight gain; no palpitations; no constipation missed f/u pt is here for UTI symptoms today - urinary frequency /dysuria with pressure and low back pain started a wk ago pt had revision of VPS shunt in 12/2020 due to breakage of tubing . pt was seen by neuro.pt had hysterectomy on 08/2019 ( heavy bleeding )pt was seeing rail director for iron transfusion , stopped seeing now . Emily Plascencia MD Attn: Accounting,[address] [place] [address], [address], [facility] 02/25/2024 14:54:20 OBGyn Episode Ob Episode Information Episode Created Date Number of Fetuses Patient Bloodtype Patient rh Status Prepregnancy Weight lbs Domestic Partner Domestic Partner Phone Father Name [employer] Architect Status 04/10/19 18 1 CLOSED Fetus Data First Name Last Name Admitted to NICU Weight (g) Sex Living Outcome Pediatric Complications Fetus ID Race Codes Race Delivery Type [id number] [id number] F Full Term [id number] Vaginal Chadwick Calculation Initial Chadwick Date Initial Exam Date Initial Exam Provider Initial Ultrasound Date Last Menstrual Period Date Ultra Sound Weeks Gestation 0 Eighteen To Twenty Week Chadwick Update Ultra Sound Date Fundal Height At Umbil Quickening Date Ultra Sound Latest Weeks Gestation Final Chadwick Confirmed By Final Chadwick Confirmed Date Final Chadwick Date Ultra Sound Latest Days Gestation 0 0 Menstrual History Last Menstrual Date Menses Monthly On Bcp Conception Prior Menses Frequency Hcg Plus Date Menarche Onset Age Delivery Information Delivery Date Delivery Type Labor Anesthesia Weeks Gestation Incision Type Labor Labor Length Hrs Delivered By Post Complications Tubal Sterilization Discharge Date Comments 5 Discharge Information Feeding Method Contraceptive Method Maternal HG B and HCT Levels
--- OUTSIDE RECORDS SUMMARY | 2024-04-08 13:52 | XMS_ITS | Patient Health Summary ---
Author Organization [facility] Address [address] [place] [address] Care Team Providers Care Timber Hand Name Role Phone Emily Stinson MD Primary Care Provider [phone] Note from [facility],non-owned Affiliates and Associated Physician Practices is amultiple site organization consisting of ambulatory clinics and hospital sitesin [place], [place], [place] and [place]. This disclosure is being madepursuant to the Care Everywhere program and may not contain all information available regarding this patient. Last updated 17.[facility] Allergies * Amoxicillin(Rash) -High Criticality Medications * Be aware that medications may not be up to date on this document. Alwaysverify current medications with the patient. * levothyroxine (SYNTHROID) 125 MCG tablet Take 125 mcg by mouth daily before breakfast * valsartan-hydroCHLOROthiazide (DIOVAN HCT) 160-12.5 MG tablet Take 1 tablet by mouth once daily * cetirizine (WAL-ZYR) 10 MG gel capsule Take 10 mg by mouth once daily * ibuprofen (MOTRIN) 600 MG tablet(Started 09/11/2019) Take 1 tablet by mouth every 6 hours as needed for Pain 1 refill by 09/10/2020 * docusate sodium (COLACE) 100 MG capsule(Started 09/11/2019) Take 1 capsule by mouth 2 times daily 1 refill by 09/10/2020 Active Problems Problem Noted Date Diagnosed Date Adenomyosis Fibroid Pelvic pain Social History Tobacco Use Types Packs/Day Years Used Date Smoking Tobacco: Never Smokeless Tobacco: Never Alcohol Use Standard Drinks/Week Comments Yes 0 (1 standard drink = 0.6 oz pur e alcohol) occ Sex and Gender Information Value Date Recorded Sex Assigned at Not on file Gender Identity Not on file Sexual Orientation Not on file Last Filed Vital Signs Vital Sign Reading Time Taken Comments Blood Pressure 139/93 09/19/2019 10:36 AM CDT Pulse 67 09/11/2019 8:20 AM CDT Temperature 36.8 C (98.2 F) 09/11/2019 8:20 AM CDT Respiratory Rate 16 09/11/2019 8:20 AM CDT Oxygen Saturation 97% 09/11/2019 8:20 AM CDT Inhaled Oxygen Concentration - - Weight 97.3 kg (214 lb 9.6 oz) 09/19/2019 10:36 AM CDT Height 170.2 cm (5' 7 ) 09/19/2019 10:36 AM CDT Body Mass Index 33.61 09/19/2019 10:36 AM CDT Procedures * CULTURE URINE(Performed 10/30/2019) Performed for Urinary frequency * APHERESIS/TRANSFUSION ORDER(Performed 09/12/2019) * CARDIAC RHYTHM STRIP ORDER(Performed 09/12/2019) * PATHOLOGY TISSUE EXAM (STL)(Performed 09/10/2019) Performed for Diagnosis unknown * ENDOTRACHEAL TUBE NOTE(Performed 09/10/2019) * BLOOD TYPE VERIFICATION(Performed 09/10/2019) * HCG BLOOD QUALITATIVE(Performed 09/10/2019) Performed for Preop examination * AL CYSTOSCOPY,DIL BLADDER,GEN ANESTH(Performed 09/10/2019) Performed for Diagnosis unknown * LAPAROSCOPIC TOTAL HYSTERECTOMY (TLH)(Performed 09/10/2019) Performed for Diagnosis unknown * BASIC METABOLIC PANEL (CALCIUM TOTAL)(Performed 09/05/2019) Performed for Pre-op testing * TYPE + SCREEN PANEL(Performed 09/05/2019) Performed for Pre-op testing * CBC W AUTO DIFFERENTIAL(Performed 09/05/2019) Performed for Pre-op testing * SARS-COV-2 (COVID-19) IN HOUSE(Performed 09/05/2019) Performed for Pre-op testing Results * CULTURE URINE (10/30/2019 4:39 PM CDT) Culture [facility] Comment: CULTURE, URINE, ROUTINE Micro Number: [id number] Test Status: Final Specimen Source: OTHER (SPECIFY) Specimen Quality: Adequate Result: Less than 10,000 CFU/mL of single Gram positive organism isolated. No further testing will be performed. If clinically indicated, recollection using a method to minimize contamination, with prompt transfer to Urine Culture Transport Tube, is recommended. Test Performed at: [facility] [address] GERMAINE ACEVEDO MD Urine MID-STREAM URINE SPECIMEN / Unknown 10/30/2019 4:39 PM CDT 10/31/2019 12:26 AM CDT Marybeth Foster MD LAB - MICROB IOLOGY ORDERABLES [address] [address] * APHERESIS/TRANSFUSION ORDER (09/12/2019 4:42 PM CDT) Narrative 09/12/2019 4:42 PM CDT Ordered by an unspecified provider. Scanned Document NURSING - VITAL SIGN S AND ASSESSMENT * CARDIAC RHYTHM STRIP ORDER (09/12/2019 4:41 PM CDT) Narrative 09/12/2019 4:41 PM CDT Ordered by an unspecified provider. Scanned Document CARDIAC SERVICES ORD ERABLES * PATHOLOGY TISSUE EXAM (STL) (09/10/2019 9:30 AM CDT) Case Report Surgical Pathology Report Case: [id number] Authorizing Provider: Marybeth Foster, Collected: 09/10/2019 09:30 AM Ordering Location: [facility] Received: 09/10/2019 11:13 AM Pathologist: Jerrod Llanes MD Specimen: Uterus w Tubes, Uterus cervix, bilateral tubes 09/12/2019 12:51 PM CDT [facility] Final Diagnosis Uterus and bilateral fallopian tubes, total laparoscopic hysterectomy and bilateral salpingectomy (A): --Cervix with squamous metaplasia and mild chronic cervicitis --Endometrium with benign polyps and a secretory pattern --Myometrium with adenomyosis --Serosa negative for significant histopathologic abnormalities --Bilateral fallopian tubes with benign paratubal cysts 09/12/2019 12:51 PM CDT [facility] Clinical History This is a 44-year-old woman with a history of heavy menses who underwent total laparoscopic hysterectomy with salpingectomy, bilateral; cystoscopy with hydrodistension bladder. 09/12/2019 12:51 PM [facility] Gross Description The specimen and requisition are identified with the patient's name, Aretha, Mirna and date of . Received in formalin, labeled uterus, cervix, bilat tubes is a 280 gm uterus with attached cervix that measures 12.5 x 9 x 6 cm. The cervix measures 4 x 3 cm with a patent cervical os that measures 1.4 cm. The serosa is mildly congested, dull. Opening shows an unremarkable endocervical canal. The endometrial cavity measures 7 x 4.5 cm and is hemorrhagic. Two polyps are present measuring 0.6 x 0.6 x 0.1 cm and 0.5 x 0.3 x 0.2 cm. The endocervix is sectioned showing multiple nabothian cysts ranging 0.2-0.6 cm. The endometrium has a thickness of up to 0.2 cm. The myometrial fundus has a thickness of up to 2.7 cm. The myometrium is diffusely trabeculated, but no myometrial nodules are grossly identified. Also present separately are two fimbriated fallopian tube segments measuring 6 x 0.8 cm (tube A) and 6.5 x 0.7 cm (tube B). The serosa is congested with multiple paratubal cysts ranging 0.1-0.2 cm in diameter. Sectioning each shows an unremarkable cut surface with a pinpoint lumen. Executive Chef Assistant sections submitted as follows: A1 - anterior cervix A2 - posterior cervix A3-A4 - one bisected polyp, anterior endomyometrium A5 - one polyp, anterior endomyometrium A6 - additional anterior endomyometrium A7-A9 - posterior endomyometrium A10 - tube A A11 - tube B JUANITA/lorena 09/12/2019 12:51 PM [facility] Microscopic Description The cervix is negative for dysplasia and malignancy. The endometrium is negative for chronic endometritis, hyperplasia and malignancy. 09/12/2019 12:51 PM [facility] Disclaimer All histochemical and/or immunohistochemical results are interpreted with controls that demonstrate appropriate staining reactions before reporting results. Note on use of immunocytochemistry reagents: This test was developed and its performance characteristic determined by [facility], Department of Laboratory Medicine. It has not been cleared or approved by the U.S. Food and Drug Administration (FDA). The FDA has determined that such clearance or approval is not necessary. The test is used for clinical purpose. It should not be regarded as investigational or for research. This laboratory is certified to perform high complexity testing. The performance characteristics of the IHC/MARY LOU assays have been validated on formalin-fixed paraffin embedded tissues only. The assays have not been validated on decalcified tissues. Results should be interpreted with caution. 09/12/2019 12:51 PM CDT [facility] Embedded Images 09/12/2019 12:51 PM CDT [facility] Pathology/Cytolo gy UTERUS AND FALLOPIAN TUBES, CS / Unknown 09/10/2019 9:30 AM CDT 09/10/2019 11:13 AM CDT Comment:Pre-op diagnosis: Diagnosis unknown [R69] Marybeth Foster MD LAB - PATHOL OGY/CYTOLOGY ORDERABLES Performing Organization Address City/State/[facility] Co de Phone Number [facility] [address] [phone] * ETT LINE PERFORMABLE (09/10/2019 8:08 AM CDT) Narrative Sera Cobb APRN-CRNA - 09/10/2019 8:08 AM CDT Sera Cobb APRN-CRNA 09/10/2019 8:08 AM Endotracheal Tube Placement: Patient Location: OR. Intubation Event Date/Time: 09/10/2019 7:51 AM Procedure: intubation (90442). Procedure Section: Sedation: under general anesthesia. Indications for Airway Management: anesthesia Induction: standard IV Patient Position: sniffing Mask Ventilation: easy. Blade Type: Lamont Blade Size: 4 Laryngoscopy View: grade 1 (full cords) Intubation Adjuncts: stylet Tube: endotracheal tube Placement: oral Tube type: cuff - inflated Tube Size (MM): 7 Depth of Insertion (CM): 22 Measured From: teeth Cuff volume (mL): 7 Cuff Inflated With: air Number of Attempts: 1. Placement Verified By: direct visualization, bilateral breath sounds, chest auscultation and CO2 monitor Tube secured with: adhesive tape. Difficult Airway? No. Procedure Start Time: 09/10/2019 7:51 AM. Staff Section Anesthesia Provider: Sera Cobb APRN-ALEX, Performed the procedure Additional Comments: Dentition/oral mucosa unchanged from pre-op exam following DVOI.. Terrance Jarquin DO GENERAL ANESTHESIA O RDERABLES * BLOOD TYPE VERIFICATION (09/10/2019 7:09 AM CDT) ABO Rh O POS 09/10/2019 7:3 8 AM CDT [facility] Blood Bank BLOOD SPECIMEN / Unknown Venipuncture / Unknown 09/10/2019 7:09 AM CDT 09/10/2019 7:12 AM CDT Marybeth Foster MD LAB - BLOOD BANK ORDERABLES Performing Organization Address [facility] Co de Phone Number [facility] [address] [place] [address] * HCG BLOOD QUALITATIVE (09/10/2019 7:09 AM CDT) HCG Qual Serum Negative Negative 09/10/2019 7:34 AM CDT [facility] Blood BLOOD SPECIMEN / Unknown Venipuncture / Unknown 09/10/2019 7:09 AM CDT 09/10/2019 7:13 AM CDT Marybeth Foster MD LAB - CHEMIS TRY ORDERABLES Performing Organization Address City/[facility] Co de Phone Number [facility] [address] [place] [address] * (ABNORMAL) BASIC METABOLIC PANEL (CALCIUM TOTAL) (09/05/2019 9:27 AM CDT) Glucose 144(H) 70 - 105 mg/dL 09/05/2019 10:04 AM CDT [facility] Sodium 140 136 - 145 mmol/L 09/05/2019 10:04 AM CDT [facility] Potassium 4.2 3.5 - 5.1 mmol/L 09/05/2019 10:04 AM CDT [facility] Chloride 107 98 - 107 mmol/L 09/05/2019 10:04 AM CDT [facility] CO2 25 23 - 31 mmol/L 09/05/2019 10:04 AM CDT [facility] Calcium 8.9 8.4 - 10.4 mg/dL 09/05/2019 10:04 AM CDT [facility] Anion Gap 8 8 - 16 mmol/L 09/05/2019 10:04 AM CDT [facility] BUN 13 7 - 18.7 mg/dL 09/05/2019 10:04 AM CDT [facility] Creatinine 0.82 0.57 - 1.11 mg/dL 09/05/2019 10:04 AM CDT [facility] eGFR by MDRD >60 >60 mL/min/1.7 3m2 09/05/2019 10:04 AM CDT [facility] eGFR by MDRD >60 >60 mL/min/1.7 3m2 09/05/2019 10:04 AM CDT [facility] Blood BLOOD SPECIMEN / Unknown Venipuncture / Unknown 09/05/2019 9:27 AM CDT 09/05/2019 9:41 AM CDT Kp Hilton MD LAB - CHEMISTRY OR DERABLES [facility] [address] [place] [address] * SARS-COV-2 (COVID-19) IN HOUSE (09/05/2019 9:15 AM CDT) COVID-19 PCR Not detected Not detected, Invalid 09/05/2019 4:13 PM CDT [facility] Microbiology SPECIMEN FROM NASOPHARYNGEAL STRUCTURE / Unknown Collection / Unknown 09/05/2019 9:15 AM CDT 09/05/2019 9:40 AM CDT Narrative [facility] - 09/05/2019 4:13 PM CDT This nucleic acid amplification assay performance was validated by [facility]. This test has been authorized by the Food and Drug administration (FDA)under an Emergency Use Authorization (EUA). This test has been validated in accordance with the FDA's guidance document Policy for Diagnostic Testing in Laboratories Certified to perform High Complexity Testing under CLIA prior to Emergency Use Authorization for Coronavirus Disease-2019 during the Public Health Emergency issued on April 12, 2019. FDA independent review of this validation is pending. This test is only authorized for the duration of time the declaration that circumstances exist justifying the authorization of emergency use of in vitro diagnostic tests for detection of SARS-CoV-2 virus and/or diagnosis of COVID-19 infection under section 564(b)(1) of the Act, 21 U.S.C 360bbb-3 (b)(1), unless the authorization is terminated or revoked sooner. Marybeth Foster MD LAB - MICROB IOLOGY ORDERABLES [facility] [address] [facility] [address] [phone] * TYPE + SCREEN PANEL (09/05/2019 9:15 AM CDT) ABO Rh O POS 09/05/2019 10:32 AM CDT [facility] Comment:No history; collect retype. Antibody Screen NEG 0 10:32 AM CDT [facility] Blood Bank BLOOD SPECIMEN / Unknown Venipuncture / Unknown 09/05/2019 9:15 AM CDT 09/05/2019 9:41 AM CDT Marybeth Foster MD LAB - BLOOD BANK ORDERABLES [facility] [address] [phone] * CBC W AUTO DIFFERENTIAL (09/05/2019 9:15 AM CDT) WBC 5.7 4.4 - 10.7 x10E9/L 09/05/2019 9:55 AM CDT [facility] WBC Corrected 09/05/2019 9:55 AM CDT [facility] RBC 4.61 3.80 - 5.20 x10E12/L 09/05/2019 9:55 AM CDT [facility] Hemoglobin 13.8 12.0 - 15.6 gm/dL 09/05/2019 9:55 AM CDT [facility] Hematocrit 42.7 35.9 - 45.5 % 09/05/2019 9:55 AM CDT [facility] MCV 92.6 80.7 - 98.3 fl 09/05/2019 9:55 AM CDT [facility] MCH 29.9 26.7 - 34.0 pg 09/05/2019 9:55 AM CDT [facility] MCHC 32.3 30.8 - 35.9 gm/dL 09/05/2019 9:55 AM CDT [facility] Platelet Count 256 153 - 416 x10E9/L 09/05/2019 9:55 AM CDT [facility] RDW-CV 12.2 12.1 - 14.9 % 09/05/2019 9:55 AM CDT [facility] MPV 9.7 9.4 - 12.9 fl 09/05/2019 9:55 AM CDT [facility] Neutrophils % 64.9 44.0 - 73.0 % 09/05/2019 9:55 AM CDT [facility] Lymphocytes % 25.0 20.0 - 43.0 % 09/05/2019 9:55 AM CDT [facility] Monocytes % 6.2 5.0 - 13.0 % 09/05/2019 9:55 AM CDT [facility] Eosinophils % 3.0 0.0 - 6.0 % 09/05/2019 9:55 AM CDT [facility] Basophils % 0.5 0.0 - 2.0 % 09/05/2019 9:55 AM CDT [facility] Immature Granulocytes 0.4 0 - 1 % 09/05/2019 9:55 AM CDT [facility] Neutrophil Absolute 3.70 2.01 - 7.14 x10E9/L 09/05/2019 9:55 AM CDT [facility] Lymphocytes Absolute 1.42 1.07 - 3.94 x10E9/L 09/05/2019 9:55 AM CDT [facility] Monocytes Absolute 0.35 0.26 - 1.07 x10E9/L 09/05/2019 9:55 AM CDT [facility] Eosinophils Absolute 0.17 0 - 0.47 x10E9/L 09/05/2019 9:55 AM CDT [facility] Basophils Absolute 0.03 0 - 0.08 x10E9/L 09/05/2019 9:55 AM CDT [facility] Immature Granulocytes Absolute 0.02 0.00 - 0.06 x10E9/L 09/05/2019 9:55 AM CDT [facility] nRBC Auto 0 /100 WBC 09/05/2019 9:55 AM CDT [facility] Blood BLOOD SPECIMEN / Unknown Venipuncture / Unknown 09/05/2019 9:15 AM CDT 09/05/2019 9:41 AM CDT Marybeth Foster MD LAB - HEMATO LOGY ORDERABLES [facility] [address] [place] [address] Care Teams Timber Hand Relationship Specialty Start Date End Date Emily Stinson MD [address] [place] [address] PCP - General 08/21/19
--- OUTSIDE RECORDS SUMMARY | 2024-04-08 13:52 | XMS_ITS | Clinical Summary ---
Author Organization [facility] Address [address] [place] [phone] Phone Care Team Providers Care Trim Crew Supervisor Name Role Phone Emily Stinson MD Primary Care Provider [phone] Allergies Active Allergy Reactions Criticality Noted Date Comments Amoxicillin Rash 09/14/2016 Medications levothyroxine (SYNTHROID) 125 MCG Tablet Take 125 mcg by mouth daily. Active cetirizine (WAL-ZYR) 10 MG Tablet Take 10 mg by mouth daily. Active Cyclobenzaprine HCl (FLEXERIL PO) Take 10 mg by mouth 2 times daily. Active ibuprofen (MOTRIN) 600 MG Tablet Take 600 mg by mouth as needed. Active albuterol (PROVENTIL HFA, VENTOLIN HFA) 108 (90 Base) MCG/ACT Aerosol Solution take 2 Puffs by inhalation every 6 hours as needed for Cough. 1 Inhaler 8 Active Active Problems Problem Noted Date Diagnosed Date Iron deficiency anemia due to chronic blood loss 09/14/2016 Vitamin B12 deficiency 09/14/2016 Family History Medical History Relation Name Comments Tuberculosis Father Cancer Maternal Aunt Lymphoma and B rain Diabetes Paternal Grandmother Relation Name Status Comments Father Alive Maternal Aunt Mother Alive Paternal Grandmother Social History Tobacco Use Types Packs/Day Years [...] Sign Reading Time Taken Comments Blood Pressure 123/96 05/17/2019 2:41 PM CDT Pulse 70 05/17/2019 2:41 PM CDT Temperature 36.7 C (98 F) 05/17/2019 2:41 PM CDT Respiratory Rate 20 05/17/2019 2:41 PM CDT Oxygen Saturation 98% 05/17/2019 2:41 PM CDT Inhaled Oxygen Concentration - - Weight 102.1 kg (225 lb) 05/17/2019 1:03 PM CDT Height 170.2 cm (5' 7 ) 05/17/2019 1:03 PM CDT Body Mass Index 35.24 05/17/2019 1:03 PM CDT Plan of Treatment Health Maintenance Due Date Last Done Comments Hepatitis C Virus (HCV) Screening 1975 Hepatitis B Immunization (1 of 3 - 19+ 3-dose series) 1994 Pap Smear 1996 Cervical Cancer Screening (CCS) 2005 HPV/Cotest 2005 Discussion re Starting/Frequency of Mammograms 2015 Influenza Immunization (#1) 10/14/202309/2018, 12/07/2017, 01/12/2017, Additional history exists SARS-COV-2 Immunization (2023- season) 2023 Colonoscopy 01/08/2027 01/08/2017, 01/08/2017 Colorectal Cancer Screening 01/08/2027 Respiratory Syncytial Virus (RSV) Immunization (Adult) (1 - 1-dose 75+ series) 2050 01/08/2017, 01/08/2017 DTaP/Tdap/Td Immunization Discontinued 10/11/2015 TdaP Immunization Completed 10/11/2015 Pneumococcal Immunization Combined Aged Out 09/11/2016 No longer eligible based on patient's age to complete this topic Meningococcal Immunization (ACWY) Aged Out No longer eligible based on patient's age to complete this topic Rotavirus Immunization Aged Out No lo nger eligible based on patient's age to complete this topic Insurance [employer] Care Teams Trim Crew Supervisor Relationship Specialty Start Date End Date Emily Stinson MD [address] [place] [address] PCP - General Internal Medicine 09/14/16
--- OUTSIDE RECORDS SUMMARY | 2024-04-08 13:52 | XMS_ITS | Clinical Summary ---
Author Organization [facility] Address [address] [place] [address] Care Team Providers Care Industrial Conveyor Belt Repairer Name Role Phone Emily Stinson MD Primary Care Provider [phone] Source Comments [facility],non-owned Affiliates and Associated Physician Practices is amultiple site organization consisting of ambulatory clinics and hospital sitesin [place], [place], [place] and [place]. This disclosure is being madepursuant to the Care Everywhere program and may not contain all information available regarding this patient. Last updated 17.[facility] Allergies Active Allergy Reactions Criticality Noted Date Comments Amoxicillin Rash High 09/14/2016 Medications * Be aware that medications may not be up to date on this document. Alwaysverify current medications with the patient. Medication Sig Dispensed Refills Start Date End Date Status levothyroxine (SYNTHROID) 125 MCG tablet Take 125 mcg by mouth daily before breakfast Active valsartan-hydroCHLO ROthiazide (DIOVAN HCT) 160-12.5 MG tablet Take 1 tablet by mouth once daily Active cetirizine (WAL-ZYR) 10 MG gel capsule Take 10 mg by mouth once daily Active ibuprofen (MOTRIN) 600 MG tablet Take 1 tablet by mouth every 6 hours as needed for Pain 40 tablet 1 09/11/2019 Active docusate sodium (COLACE) 100 MG capsule Take 1 capsule by mouth 2 times daily 60 capsule 1 09/11/2019 Active Active Problems Problem Noted Date Diagnosed Date Adenomyosis Fibroid Pelvic pain Family History Medical History Relation Name Comments Thyroid Disease Mother Relation Name Status Comments Mother Social History Tobacco Use Types Packs/Day Years [...] Mass Index 33.61 09/19/2019 10:36 AM CDT Plan of Treatment Health Maintenance Due Date Last Done Comments COLOGUARD (AGES 45-75) - COL ON CA SCREENING 1975 COLON MONITORING 1975 COLONOSCOPY - COLON CA SCREENING 1975 CT COLONOGRAPHY - COLON CA SCREENING 1975 Colorectal Cancer Screening 1975 FIT - COLON CA SCREENING 1975 FLEX SIG - COLON CA SCREENING 1975 LIPID TESTING 1975 HIV SCREENING 1990 HEPATITIS C SCREENING 03/04/1993 DTAP/TDAP/TD VACCINES (1 - Tdap) 1994 HEPATITIS B VACCINE (1 of 3 - 19+ 3-dose series) 1994 MAMMOGRAM 08/28/2021 08/29/2019 SCREENING FOR DIABETES 09/04/2022 09/05/2019 COVID-19 VACCINE (1 - 2023-2 5 season) 2023 INFLUENZA VACCINE (#1) 2023 DEPRESSION SCREENING 02/13/2024 ZOSTER VACCINE (1 of 2) 2025 HIB VACCINE Aged Out No longer eligi ble based on patient's age to complete this topic HPV VACCINE Aged Out No longer eligi ble based on patient's age to complete this topic MENINGOCOCCAL (Group B) VACCINE Aged Out No longer eligible based on patient's age to complete this topic MENINGOCOCCAL VACCINE Aged Out No yasmin clifford eligible based on patient's age to complete this topic PNEUMOCOCCAL VACCINE Aged Out No long er eligible based on patient's age to complete this topic Procedures Procedure Name Priority Date/Time Associated Diagnosis Comments BASIC METABOLIC PANEL (CALCIUM TOTAL) STAT 09/05/2019 9:27 AM CDT Pre-op testing from Last 3 Months or Most Recently Relevant to Health Maintenance Results * (ABNORMAL) BASIC METABOLIC PANEL (CALCIUM TOTAL) (09/05/2019 9:27 AM CDT) Glucose 144(H) 70 - 105 mg/dL 09/05/2019 10:04 AM CDT [facility] Sodium 140 136 - 145 mmol/L 09/05/2019 10:04 AM CDT [facility] Potassium 4.2 3.5 - 5.1 mmol/L 09/05/2019 10:04 AM CDT [facility] Chloride 107 98 - 107 mmol/L 09/05/2019 10:04 AM CDT [facility] CO2 25 23 - 31 mmol/L 09/05/2019 10:04 AM CDT [facility] Calcium 8.9 8.4 - 10.4 mg/dL 09/05/2019 10:04 AM CDT [facility] Anion Gap 8 8 - 16 mmol/L 09/05/2019 10:04 AM CDT [facility] BUN 13 7 - 18.7 mg/dL 09/05/2019 10:04 AM CDT [facility] Creatinine 0.82 0.57 - 1.11 mg/dL 09/05/2019 10:04 AM CDT [facility] eGFR by MDRD >60 >60 mL/min/1.7 3m2 09/05/2019 10:04 AM CDT [facility] eGFR by MDRD >60 >60 mL/min/1.7 3m2 09/05/2019 10:04 AM T [facility] Blood BLOOD SPECIMEN / Unknown Venipuncture / Unknown 09/05/2019 9:27 AM CDT 09/05/2019 9:41 AM CDT Kp Hilton MD LAB - CHEMISTRY OR DERABLES [facility] [address] [place] [address] from Last 3 Months or Most Recently Relevant to Health Maintenance Care Teams Industrial Conveyor Belt Repairer Relationship Specialty Start Date End Date Emily Stinson MD [address] [place] [address] PCP - General 08/21/19
--- OUTSIDE RECORDS SUMMARY | 2024-04-08 13:52 | XMS_ITS | Referral Summary ---
Author Organization [facility] Address [address] [place] [address] Care Team Providers Care Health Assessment And Treatment Teacher Name Role Phone Emily Stinson MD Primary Care Provider [phone] Source Comments [facility] [place] [facility],non-owned Affiliates and Associated Physician Practices is amultiple site organization consisting of ambulatory clinics and hospital sitesin [place], [place], [place] and [place]. This disclosure is being madepursuant to the Care Everywhere program and may not contain all information available regarding this patient. Last updated 17.[facility] Allergies Active Allergy Reactions Criticality Noted Date [...] 09/19/2019 10:36 AM CDT Plan of Treatment Not on file Procedures Procedure Name Priority Date/Time Associated Diagnosis Comments BASIC METABOLIC PANEL (CALCIUM TOTAL) STAT 09/05/2019 9:27 AM CDT Pre-op testing from Last 3 Months or Most Recently Relevant to Health Maintenance Results * (ABNORMAL) BASIC METABOLIC PANEL (CALCIUM TOTAL) (09/05/2019 9:27 AM CDT) Glucose 144(H) 70 - 105 mg/dL 09/05/2019 10:04 AM CDT [facility] Sodium 140 136 - 145 mmol/L 09/05/2019 10:04 AM CDT [facility] Potassium 4.2 3.5 - 5.1 mmol/L 09/05/2019 10:04 AM CDT [facility] Chloride 107 98 - 107 mmol/L 09/05/2019 10:04 AM CDT [facility] CO2 25 23 - 31 mmol/L 09/05/2019 10:04 AM CDT [facility] Calcium 8.9 8.4 - 10.4 mg/dL 09/05/2019 10:04 AM CDT [facility] Anion Gap 8 8 - 16 mmol/L 09/05/2019 10:04 AM CDT [facility] BUN 13 7 - 18.7 mg/dL 09/05/2019 10:04 AM CDT [facility] Creatinine 0.82 0.57 - 1.11 mg/dL 09/05/2019 10:04 AM CDT [facility] eGFR by MDRD >60 >60 mL/min/1.7 3m2 09/05/2019 10:04 AM CDT [facility] eGFR by MDRD >60 >60 mL/min/1.7 3m2 09/05/2019 10:04 AM CDT [facility] Blood BLOOD SPECIMEN / Unknown Venipuncture / Unknown 09/05/2019 9:27 AM CDT 09/05/2019 9:41 AM CDT Kp Hilton MD LAB - CHEMISTRY OR DERABLES [facility] [address] [place], [place] [id number] from Last 3 Months or Most Recently Relevant to Health Maintenance Care Teams Health Assessment And Treatment Teacher Relationship Specialty Start Date End Date Emily Stinson MD [address] [place] [address] PCP - General 08/21/19
== END 2024-04-08 12:16 | disposition home or self-care (01) ==
PROVIDERS: Emergency Provider Nurse Practitioner
DX: J32.9 Chronic sinusitis, unspecified (principal); I10 Essential (primary) hypertension; E03.9 Hypothyroidism, unspecified; E11.9 Type 2 diabetes mellitus without complications; E78.00 Pure hypercholesterolemia, unspecified
CPT/HCPCS: 99213; G0463